=== PATIENT | male | born 1970 | race Caucasian/White ===

== ENCOUNTER → 2018-09-03 | Outpatient (REF) | payer OTHER ==
[2018-09-03 18:09] LABS: BASO % 0.4 % (0.0-1.0); EOS # 0.2 10^3/uL (0.0-0.50); EOS % 1.7 % (0.0-3.0); HEMOGLOBIN 16.2 g/dl (13.5-17.5); LYMPH # 2.4 10^3/uL (1.5-4.5); LYMPH % 23.7 % (24.0-44.0); MEAN CORPUSCULAR HEMOGLOBIN 33.7 pg (27.0-33.0); MEAN CORPUSCULAR HGB CONC 33.8 g/dl (32.0-36.5); MEAN CORPUSCULAR VOLUME 99.8 fl (80.0-96.0); MONO # 0.7 10^3/uL (0.0-0.8); MONO % 6.4 % (0.0-5.0); NEUTROPHILS # 6.8 10^3/uL (1.8-7.7); NEUTROPHILS % 67.5 % (36.0-66.0); PLATELET COUNT, AUTOMATED 272 10^3/uL (150-450); RED BLOOD COUNT 4.81 10^6/uL (4.30-6.10); WHITE BLOOD COUNT 10.1 10^3/uL (4.0-10.0)
[2018-09-03 18:27] LABS: ALBUMIN 3.6 GM/DL (3.2-5.2); ALT/SGPT 17 U/L (12-78); BILIRUBIN,TOTAL 0.6 MG/DL (0.2-1.0); BLOOD UREA NITROGEN 11 MG/DL (7-18); CALCIUM LEVEL 8.8 MG/DL (8.5-10.1); CARBON DIOXIDE LEVEL 27 MEQ/L (21-32); CHLORIDE LEVEL 111 MEQ/L (98-107); CPK CREATINE PHOSPHOKINASE 124 U/L (39-308); CREATININE FOR GFR 1.03 MG/DL (0.70-1.30); GLOMERULAR FILTRATION RATE > 60.0 (>60); GLUCOSE, FASTING 86 MG/DL (70-100); POTASSIUM SERUM 4.3 MEQ/L (3.5-5.1); SODIUM LEVEL 143 MEQ/L (136-145); TOTAL PROTEIN 7.4 GM/DL (6.4-8.2)
[2018-09-03 18:33] LABS: HEMOGLOBIN A1c 5.5 %
== END ==
LOC: M SFHCPLAZ 15:43
PROVIDERS: ATTEND Physician Assistant Medical
DX: E66.3 Overweight (principal); E78.49 Other hyperlipidemia; D72.829 Elevated white blood cell count, unspecified

== ENCOUNTER → 2018-10-21 | Outpatient (REF) | payer OTHER ==
[2018-10-21 13:50] LABS: CHOLESTEROL RISK RATIO 5.315 (<5)
== END ==
LOC: M SFHCPLAZ 11:34
PROVIDERS: ATTEND Physician Assistant Medical
DX: E78.49 Other hyperlipidemia (principal)

== ENCOUNTER → 2018-11-04 | Outpatient (CLI) | payer OTHER ==
--- NOTE | 2018-11-05 06:07 | REP ---
Clinical: Thyroid nodule. Technique: Real time chery scale and color evaluation using linear high frequency and curved array transducers. Comparison: None. Findings: Thyroid gland parenchyma is relatively homogeneous and normal. The isthmus measures 3 mm in width. There is slight asymmetry to the size of the glands. The right lobe measures 6.0 x 3.3 x 1.8 cm and includes 5 x 3 x 5 mm hypoechoic mid pole nodule with mural calcification and 2 x 1 x 2 mm focal parenchymal calcifications. The left thyroid lobe measures 4.5 x 2.1 x 1.5 cm includes 5 x 4 x 4 mm hypoechoic solid mid pole nodule and 4 x 3 x 4 mm lower pole isoechoic nodule. Vascularity to the bilateral thyroid lobes appears normal. Impression: Slight asymmetry to the size of the bilateral thyroid lobes (right greater than left) along with complex partially calcified nodule in the right lobe and smaller nonspecific bilateral nodules. Electronically Signed by Rustam Gandara MD 11/05/2018 05:58 A
== END ==
LOC: M RAD 08:52
PROVIDERS: ATTEND Physician Assistant Medical
DX: E04.2 Nontoxic multinodular goiter (principal)

== ENCOUNTER → 2018-11-23 | Outpatient (CLI) | payer OTHER ==
--- NOTE | 2018-11-23 10:01 | PFTRPT ---
Height: 70.00 Inches Weight: 180.00 Lbs BSA: 2.00 Diagnosis: J44.9 DATE OF PROCEDURE: 11/23/2018 ORDERED BY: LAMBERTO Hendrix Spirometry: Excellent technical quality. Forced vital capacity is normal. FEV1 in proportion. Obstructive index is, therefore, normal. Flow Volume Loop: Expiratory limb of the flow volume loop is normal. Lung Volumes: Total lung capacity normal. Residual volume is in proportion. Diffusing Capacity: Diffusing capacity is mildly reduced. Hemoglobin: No hemoglobin available for correction. It does correct for alveolar volume. Airway Mechanics: Airway resistance and conductance are normal. IMPRESSION: Mild reduction in the absolute diffusing capacity requires clinical correlation. MTDD
== END ==
LOC: M CARPUL 09:29
PROVIDERS: ATTEND Physician Assistant Medical
DX: J44.9 Chronic obstructive pulmonary disease, unspecified (principal)

== ENCOUNTER → 2019-01-11 | Outpatient (REF) | payer OTHER ==
[2019-01-11 12:17] LABS: ALT/SGPT 20 U/L (12-78); BILIRUBIN,TOTAL 0.8 MG/DL (0.2-1.0); BLOOD UREA NITROGEN 14 MG/DL (7-18); CALCIUM LEVEL 9.3 MG/DL (8.5-10.1); CARBON DIOXIDE LEVEL 26 MEQ/L (21-32); CHLORIDE LEVEL 110 MEQ/L (98-107); CHOLESTEROL LEVEL 135 MG/DL (<200); CHOLESTEROL RISK RATIO 3.375 (<5); CPK CREATINE PHOSPHOKINASE 116 U/L (39-308); CREATININE FOR GFR 1.15 MG/DL (0.70-1.30); GLOMERULAR FILTRATION RATE > 60.0 (>60); GLUCOSE, FASTING 107 MG/DL (70-100); HDL CHOLESTEROL 40 MG/DL (>40); LDL CHOLESTEROL 63 MG/DL (<100); NON-HDL-C 95 MG/DL; POTASSIUM SERUM 4.2 MEQ/L (3.5-5.1); SODIUM LEVEL 145 MEQ/L (136-145); TOTAL PROTEIN 7.4 GM/DL (6.4-8.2); TRIGLYCERIDES LEVEL 160 MG/DL (<150)
== END ==
LOC: M SFHCPLAZ 09:11
PROVIDERS: ATTEND Physician Assistant Medical
DX: E78.49 Other hyperlipidemia (principal)

== ENCOUNTER → 2019-01-11 | Outpatient (REF) | payer OTHER ==
[~2019-01-11] MED LIST: ALBU8.5H; ATOR40TA75; INCR1INH; TIZA4TAB4
[2019-01-16 00:07] LABS: METANEPHRINE TOTAL URINE 113 ug/L (Undefined); METANEPHRINE URINE 96 ug/24 hr (45-290); NORMETANEPHRINE TOTAL URINE 121 ug/L (Undefined); NORMETANEPHRINE URINE 103 ug/24 hr (82-500)
== END ==
LOC: M SFHCPLAZ 11:30
PROVIDERS: ATTEND Physician Assistant Medical
DX: D35.00 Benign neoplasm of unspecified adrenal gland (principal)

== ENCOUNTER 2019-02-18 11:09 | Emergency (ER) | payer OTHER ==
[~2019-02-18] VITALS: Ht 177.8 cm; Wt 84.5 kg
[2019-02-18] MEDS ORDERED: ALBU8.5H (11:25)
[2019-02-18] MEDS ORDERED: INCR1INH (11:25)
[2019-02-18] MEDS ORDERED: TIZA4TAB4 (11:25)
[2019-02-18] MEDS ORDERED: ATOR40TA75 (11:25)
[2019-02-18 11:49] LABS: HEMATOCRIT 47.2 % (42.0-52.0); HEMOGLOBIN 15.8 g/dl (13.5-17.5); MEAN CORPUSCULAR HEMOGLOBIN 32.6 pg (27.0-33.0); MEAN CORPUSCULAR HGB CONC 33.5 g/dl (32.0-36.5); MEAN CORPUSCULAR VOLUME 97.5 fl (80.0-96.0); PLATELET COUNT, AUTOMATED 277 10^3/uL (150-450); RED BLOOD COUNT 4.84 10^6/uL (4.30-6.10)
[2019-02-18 12:12] LABS: AMPHETAMINES LEVEL URINE NEGATIVE (NEGATIVE); BARBITURATES URINE NEGATIVE (NEGATIVE); BENZODIAZEPINES URINE NEGATIVE (NEGATIVE); CANNABINOIDS URINE POSITIVE (NEGATIVE); COCAINE METABOLITE URINE NEGATIVE (NEGATIVE); METHADONE URINE NEGATIVE (NEGATIVE); OPIATES URINE NEGATIVE (NEGATIVE); PHENCYCLIDINE URINE NEGATIVE (NEGATIVE)
[2019-02-18 12:21] LABS: ALT/SGPT 20 U/L (12-78); BILIRUBIN,DIRECT 0.2 MG/DL (0.0-0.2); BILIRUBIN,TOTAL 0.9 MG/DL (0.2-1.0); BLOOD UREA NITROGEN 14 MG/DL (7-18); CALCIUM LEVEL 9.6 MG/DL (8.5-10.1); CARBON DIOXIDE LEVEL 30 MEQ/L (21-32); CHLORIDE LEVEL 109 MEQ/L (98-107); CREATININE FOR GFR 1.13 MG/DL (0.70-1.30); GLOMERULAR FILTRATION RATE > 60.0 (>60); GLUCOSE, FASTING 97 MG/DL (70-100); POTASSIUM SERUM 3.6 MEQ/L (3.5-5.1); SODIUM LEVEL 144 MEQ/L (136-145)
[2019-02-18 12:22] LABS: ALBUMIN 4.2 GM/DL (3.2-5.2); SALICYLATE LEVEL < 1.7 MG/DL (5.0-30.0); TOTAL PROTEIN 7.8 GM/DL (6.4-8.2)
[2019-02-18 12:23] LABS: ACETAMINOPHEN LEVEL < 2.0 UG/ML (10.0-30.0); ETHYL ALCOHOL (ETHANOL) < 0.003 % (0.000-0.010)
[2019-02-18 14:01] VITALS: BP 127/77
== END 2019-02-18 14:02 | disposition home or self-care (01) ==
LOC: M ED 11:09
DX: R44.1 Visual hallucinations (principal); F41.9 Anxiety disorder, unspecified; Z87.891 Personal history of nicotine dependence; J44.9 Chronic obstructive pulmonary disease, unspecified; Z88.8 Allergy status to other drugs, medicaments and biological substances; Z79.51 Long term (current) use of inhaled steroids; Z79.899 Other long term (current) drug therapy
CPT/HCPCS: 80048; 80076; 80307; 84443; 85027; 99284; G0480

== ENCOUNTER 2019-05-10 14:45 | Emergency (ER) | payer MEDICAID, OTHER ==
[~2019-05-10] VITALS: Ht 177.8 cm; Wt 81.8 kg
[~2019-05-10 14:45] MED LIST changes: -TIZA4TAB4; +TIZA4TAB4 PO
[2019-05-10] MEDS ORDERED: ACET-683 PO (15:29)
[2019-05-10] MEDS ORDERED: LISI-542 PO (15:29)
[2019-05-10] MEDS ORDERED: PYRI25TA2 PO (15:29)
[2019-05-10] MEDS ORDERED: NORT25CA2 PO (15:29)
[2019-05-10 15:52] LABS: HEMATOCRIT 48.2 % (42.0-52.0); MEAN CORPUSCULAR HEMOGLOBIN 32.6 pg (27.0-33.0); MEAN CORPUSCULAR HGB CONC 33.2 g/dl (32.0-36.5); MEAN CORPUSCULAR VOLUME 98.2 fl (80.0-96.0); PLATELET COUNT, AUTOMATED 225 10^3/uL (150-450); RED BLOOD COUNT 4.91 10^6/uL (4.30-6.10); WHITE BLOOD COUNT 8.2 10^3/uL (4.0-10.0)
[2019-05-10 16:22] LABS: ACETAMINOPHEN LEVEL < 2.0 UG/ML (10.0-30.0); ALBUMIN 4.3 GM/DL (3.2-5.2); ALT/SGPT 24 U/L (12-78); BILIRUBIN,DIRECT 0.2 MG/DL (0.0-0.2); BILIRUBIN,TOTAL 0.8 MG/DL (0.2-1.0); BLOOD UREA NITROGEN 15 MG/DL (7-18); CALCIUM LEVEL 9.5 MG/DL (8.5-10.1); CARBON DIOXIDE LEVEL 27 MEQ/L (21-32); CHLORIDE LEVEL 109 MEQ/L (98-107); CREATININE FOR GFR 1.16 MG/DL (0.70-1.30); ETHYL ALCOHOL (ETHANOL) < 0.003 % (0.000-0.010); GLOMERULAR FILTRATION RATE > 60.0 (>60); GLUCOSE, FASTING 104 MG/DL (70-100); POTASSIUM SERUM 4.2 MEQ/L (3.5-5.1); SALICYLATE LEVEL < 1.7 MG/DL (5.0-30.0); SODIUM LEVEL 141 MEQ/L (136-145); TOTAL PROTEIN 7.6 GM/DL (6.4-8.2)
[2019-05-10 16:28] LABS: AMPHETAMINES LEVEL URINE NEGATIVE (NEGATIVE); BARBITURATES URINE NEGATIVE (NEGATIVE); BENZODIAZEPINES URINE NEGATIVE (NEGATIVE); CANNABINOIDS URINE POSITIVE (NEGATIVE); COCAINE METABOLITE URINE NEGATIVE (NEGATIVE); METHADONE URINE NEGATIVE (NEGATIVE); OPIATES URINE NEGATIVE (NEGATIVE); PHENCYCLIDINE URINE NEGATIVE (NEGATIVE)
[2019-05-10 19:40] VITALS: BP 161/92
== END 2019-05-10 20:09 | disposition home or self-care (01) ==
LOC: M ED 14:45
DX: F43.0 Acute stress reaction (principal); R45.1 Restlessness and agitation; F41.9 Anxiety disorder, unspecified; I10 Essential (primary) hypertension; J44.9 Chronic obstructive pulmonary disease, unspecified; F17.210 Nicotine dependence, cigarettes, uncomplicated; Z88.2 Allergy status to sulfonamides; Z79.51 Long term (current) use of inhaled steroids; Z79.899 Other long term (current) drug therapy
CPT/HCPCS: 36415; 80048; 80076; 80307; 84443; 85027; 99284; G0480

== ENCOUNTER → 2019-05-13 | Outpatient (CLI) | payer OTHER ==
[~2019-05-13] MED LIST changes: +ACET-683 PO; +IBUP-1022 PO; +LISI-542 PO; +NORT25CA2 PO; +PYRI25TA2 PO
--- NOTE | 2019-05-13 11:35 | REPVR ---
PROCEDURE INFORMATION: Exam: MR Lumbar Spine Without Contrast. Exam date and time: 05/13/2019 8:07 AM Age: 48 years old Clinical indication: Low back pain; Patient HX: Neuropathy TECHNIQUE: Imaging protocol: Multiplanar magnetic resonance images of the lumbar spine without intravenous contrast. COMPARISON: No relevant prior studies available. FINDINGS: Vertebrae: No acute compression fracture is seen. Bone marrow signal is within normal limits. Spinal cord: The conus medullaris terminates at the L1 level. There is no evidence of arachnoiditis or cauda equina compression. L1-L2: There is mild facet arthropathy. There is no significant spinal canal or neural foraminal stenosis. L2-L3: There is mild facet arthropathy. There is no significant spinal canal or neural foraminal stenosis. L3-L4: There is mild facet arthropathy. This is causing mild bilateral neural foraminal narrowing. There is no spinal canal stenosis. L4-L5: There is mild facet arthropathy and thickening of the ligamentum flavum. This is causing minimal spinal canal stenosis. There is no significant neural foraminal narrowing. L5-S1: No significant disc disease. No significant spinal stenosis or neural foraminal narrowing. Soft tissues: Unremarkable. IMPRESSION: 1. No acute abnormality 2. Mild facet arthropathy within the lumbar spine. There is no significant spinal canal or neural foraminal stenosis. Electronically signed by: Romulo Velasquez On 05/13/2019 11:35:36 AM
== END ==
LOC: M RAD 07:22
PROVIDERS: ATTEND Physician Assistant Medical
DX: G62.9 Polyneuropathy, unspecified (principal); M46.96 Unspecified inflammatory spondylopathy, lumbar region

== ENCOUNTER 2019-05-15 20:28 | Emergency (ER) | payer OTHER ==
[~2019-05-15] VITALS: Ht 177.8 cm; Wt 81.6 kg
[~2019-05-15 20:28] MED LIST changes: -IBUP-1022 PO
[2019-05-15 21:25] LABS: BASO % 0.3 % (0.0-1.0); EOS % 0.2 % (0.0-3.0); HEMATOCRIT 45.6 % (42.0-52.0); HEMOGLOBIN 15.3 g/dl (13.5-17.5); LYMPH # 0.6 10^3/uL (1.5-5.0); LYMPH % 10.8 % (24.0-44.0); MEAN CORPUSCULAR HEMOGLOBIN 32.1 pg (27.0-33.0); MEAN CORPUSCULAR HGB CONC 33.6 g/dl (32.0-36.5); MEAN CORPUSCULAR VOLUME 95.8 fl (80.0-96.0); MONO # 0.6 10^3/uL (0.0-0.8); MONO % 10.5 % (0.0-5.0); NEUTROPHILS # 4.6 10^3/uL (1.5-8.5); PLATELET COUNT, AUTOMATED 190 10^3/uL (150-450); RED BLOOD COUNT 4.76 10^6/uL (4.30-6.10); WHITE BLOOD COUNT 5.9 10^3/uL (4.0-10.0)
[2019-05-15 21:51] LABS: BLOOD UREA NITROGEN 14 MG/DL (7-18); CALCIUM LEVEL 8.8 MG/DL (8.5-10.1); CARBON DIOXIDE LEVEL 21 MEQ/L (21-32); CHLORIDE LEVEL 110 MEQ/L (98-107); CK-MB VALUE MASS < 1.0 NG/ML (<3.6); CPK CREATINE PHOSPHOKINASE 175 U/L (39-308); CREATININE FOR GFR 1.14 MG/DL (0.70-1.30); GLOMERULAR FILTRATION RATE > 60.0 (>60); GLUCOSE, FASTING 102 MG/DL (70-100); MB/CK RELATIVE INDEX 0.57 (< OR =4); NT-PRO BNP 104 PG/ML (<125); POTASSIUM SERUM 3.8 MEQ/L (3.5-5.1); SODIUM LEVEL 141 MEQ/L (136-145); TROPONIN I < 0.02 NG/ML (< 0.10)
--- NOTE | 2019-05-15 21:51 | REPVR ---
PROCEDURE INFORMATION: Exam: CT Head Without Contrast Exam date and time: 05/15/19 (9:27pm) Age: 48 years old Clinical indication: Numbness. Paresthesia to all extremities, worse on left side. TECHNIQUE: Imaging protocol: Computed tomography of the head without contrast. Radiation optimization: All CT scans at this facility use at least one of these dose optimization techniques: automated exposure control; mA and/or kV adjustment per patient size (includes targeted exams where dose is matched to clinical indication); or iterative reconstruction. COMPARISON: US THYROID of 11/04/18 FINDINGS: Brain: Unremarkable. No acute hemorrhage. Unremarkable white matter. No mass effect. Ventricles: Normal. No ventriculomegaly. Bones/joints: Unremarkable. No acute fracture. Sinuses: Visualized sinuses are unremarkable. No air-fluid levels. Mastoid air cells: Visualized mastoid air cells are well aerated. Soft tissues: Unremarkable. IMPRESSION: No acute intracranial pathology is appreciated. Electronically signed by: Kaitlin Delgado On 05/15/2019 21:53:04 PM
[2019-05-15 21:57] LABS: INFLUENZA A AMPLIFICATION POSITIVE (NEGATIVE); INFLUENZA B AMPLIFICATION NEGATIVE (NEGATIVE)
--- NOTE | 2019-05-15 22:05 | ECGEPIP ---
[facility] - ED Test Date: 2019-05-15 Pat Name: CHRISTOPHER MARTÍNEZ Department: Room: - Gender: Male [employer] Operator: sb : 1970 Requested By: MARGARET NEWBERRY Order Number: [id number] Reading MD: Kenroy Dumont Measurements Intervals [place] Rate: 77 P: 65 [place]: 142 QRS: -7 QRSD: 107 T: 35 QT: 361 QTc: 411 Interpretive Statements SINUS RHYTHM INCOMPLETE RIGHT BUNDLE BRANCH BLOCK NO PRIORS FOR COMPARISON Electronically Signed on 05-15-2019 22:05:23 EST by Kenroy Dumont
[2019-05-15] MEDS ORDERED: ACETAMINOPHEN TAB 650MG DOSE (2X325MG) PO ONE (22:30)
[2019-05-15] MEDS ORDERED: IBUPROFEN 600 MG TAB PO ONE (22:30)
[2019-05-15] MEDS ORDERED: NS 1,000 ML IV ONE (22:45)
[2019-05-16 00:21] VITALS: BP 129/66
[2019-05-16] MEDS ORDERED: ACET-683 PO (00:22)
[2019-05-16] MEDS ORDERED: IBUP-1022 PO (00:22)
--- NOTE | 2019-05-16 08:03 | REP ---
The PA and lateral chest: There are no comparisons. I suspect there is a surgical staple line in the right apex. The lung aguilar otherwise clear. Cardiac size is normal. The hailey, mediastinum, skeletal structures are. Impression: No acute cardiopulmonary findings. I suspect there is a surgical staple line in the right apex. The Electronically Signed by Danielito Martinez MD 05/16/2019 07:55 A
== END 2019-05-16 00:31 | disposition home or self-care (01) ==
LOC: M ED 20:28
DX: J10.1 Influenza due to other identified influenza virus with other respiratory manifestations (principal); I10 Essential (primary) hypertension; J44.9 Chronic obstructive pulmonary disease, unspecified; E78.5 Hyperlipidemia, unspecified; F17.200 Nicotine dependence, unspecified, uncomplicated; Z90.2 Acquired absence of lung [part of]; F12.10 Cannabis abuse, uncomplicated; F10.10 Alcohol abuse, uncomplicated; Z88.8 Allergy status to other drugs, medicaments and biological substances; Z79.899 Other long term (current) drug therapy

== ENCOUNTER → 2019-05-31 | Outpatient (CLI) | payer OTHER, MEDICAID ==
[~2019-05-31] MED LIST changes: +IBUP-1022 PO
[2019-05-31 17:28] LABS: CHOLESTEROL RISK RATIO 2.864 (<5)
== END ==
LOC: M PLALAB 12:20
PROVIDERS: ATTEND Student in an Organized Health Care Education/Training Program
DX: F06.0 Psychotic disorder with hallucinations due to known physiological condition (principal); F41.1 Generalized anxiety disorder

== ENCOUNTER → 2019-10-04 | Outpatient (REF) | payer OTHER ==
[2019-10-04 13:45] LABS: BASO # 0.1 10^3/uL (0.0-0.2); BASO % 0.5 % (0.0-1.0); EOS # 2.7 10^3/uL (0.0-0.5); HEMATOCRIT 45.2 % (42.0-52.0); HEMOGLOBIN 14.9 g/dl (13.5-17.5); LYMPH # 2.4 10^3/uL (1.5-5.0); LYMPH % 18.3 % (24.0-44.0); MEAN CORPUSCULAR HEMOGLOBIN 33.8 pg (27.0-33.0); MEAN CORPUSCULAR VOLUME 102.5 fl (80.0-96.0); MONO # 0.7 10^3/uL (0.0-0.8); MONO % 5.2 % (0.0-5.0); NEUTROPHILS # 7.1 10^3/uL (1.5-8.5); NEUTROPHILS % 54.8 % (36.0-66.0); PLATELET COUNT, AUTOMATED 268 10^3/uL (150-450); RED BLOOD COUNT 4.41 10^6/uL (4.30-6.10)
[2019-10-04 14:22] LABS: ALBUMIN 3.5 GM/DL (3.2-5.2); ALT/SGPT 28 U/L (12-78); BILIRUBIN,TOTAL 0.4 MG/DL (0.2-1.0); BLOOD UREA NITROGEN 18 MG/DL (7-18); CARBON DIOXIDE LEVEL 29 MEQ/L (21-32); CHLORIDE LEVEL 108 MEQ/L (98-107); CHOLESTEROL LEVEL 159 MG/DL (<200); CHOLESTEROL RISK RATIO 4.297 (<5); CPK CREATINE PHOSPHOKINASE 108 U/L (39-308); CREATININE FOR GFR 1.07 MG/DL (0.70-1.30); FREE T4 1.12 NG/DL (0.76-1.46); GLOMERULAR FILTRATION RATE > 60.0 (>60); GLUCOSE, FASTING 83 MG/DL (70-100); HDL CHOLESTEROL 37 MG/DL (>40); LDL CHOLESTEROL 102 MG/DL (<100); NON-HDL-C 122 MG/DL; POTASSIUM SERUM 4.3 MEQ/L (3.5-5.1); SODIUM LEVEL 142 MEQ/L (136-145); THYROID STIMULATING HORMONE 0.767 uIU/ML (0.358-3.740); TRIGLYCERIDES LEVEL 99 MG/DL (<150)
[2019-10-04 14:26] LABS: EOS % 20.9 % (0.0-3.0); VITAMIN B12 LEVEL 481 PG/ML (247-911)
== END ==
LOC: M PLALAB 11:33
PROVIDERS: ATTEND Physician Assistant Medical
DX: E78.49 Other hyperlipidemia (principal); E04.1 Nontoxic single thyroid nodule; F17.200 Nicotine dependence, unspecified, uncomplicated; I10 Essential (primary) hypertension

== ENCOUNTER → 2019-12-27 | Outpatient (CLI) | payer OTHER, MEDICAID ==
[2019-12-27 12:50] LABS: CHOLESTEROL RISK RATIO 4.525 (<5)
[2019-12-27 13:00] LABS: HEMOGLOBIN A1c 5.3 %
== END ==
LOC: M PLALAB 09:48
PROVIDERS: ATTEND Student in an Organized Health Care Education/Training Program
DX: F20.9 Schizophrenia, unspecified (principal)

== ENCOUNTER → 2020-04-03 | Outpatient (CLI) | payer OTHER, MEDICAID ==
[2020-04-03 13:55] LABS: HEMOGLOBIN A1c 5.3 %
[2020-04-03 14:13] LABS: CHOLESTEROL RISK RATIO 4.289 (<5)
== END ==
LOC: M PLALAB 10:51
PROVIDERS: ATTEND Student in an Organized Health Care Education/Training Program
DX: J44.9 Chronic obstructive pulmonary disease, unspecified (principal); F32.9 Major depressive disorder, single episode, unspecified; Z79.899 Other long term (current) drug therapy

== ENCOUNTER → 2020-05-11 | Outpatient (REF) | payer OTHER ==
[2020-05-11 18:08] LABS: BASO # 0.1 10^3/uL (0.0-0.2); BASO % 0.4 % (0.0-1.0); EOS # 0.2 10^3/uL (0.0-0.5); EOS % 1.4 % (0.0-3.0); HEMATOCRIT 48.1 % (42.0-52.0); HEMOGLOBIN 15.8 g/dl (13.5-17.5); LYMPH # 2.2 10^3/uL (1.5-5.0); LYMPH % 16.8 % (24.0-44.0); MEAN CORPUSCULAR HEMOGLOBIN 32.8 pg (27.0-33.0); MEAN CORPUSCULAR HGB CONC 32.8 g/dl (32.0-36.5); MONO # 0.7 10^3/uL (0.0-0.8); NEUTROPHILS % 76.1 % (36.0-66.0); PLATELET COUNT, AUTOMATED 299 10^3/uL (150-450); RED BLOOD COUNT 4.81 10^6/uL (4.30-6.10); WHITE BLOOD COUNT 13.1 10^3/uL (4.0-10.0)
[2020-05-11 18:39] LABS: ALT/SGPT 23 U/L (12-78); BILIRUBIN,TOTAL 0.6 MG/DL (0.2-1.0); BLOOD UREA NITROGEN 16 MG/DL (7-18); CALCIUM LEVEL 9.5 MG/DL (8.5-10.1); CARBON DIOXIDE LEVEL 27 MEQ/L (21-32); CHLORIDE LEVEL 106 MEQ/L (98-107); CHOLESTEROL LEVEL 174 MG/DL (<200); CHOLESTEROL RISK RATIO 4.461 (<5); CREATININE FOR GFR 1.11 MG/DL (0.70-1.30); GLOMERULAR FILTRATION RATE > 60.0 (>60); GLUCOSE, FASTING 91 MG/DL (70-100); HDL CHOLESTEROL 39 MG/DL (>40); LDL CHOLESTEROL 108 MG/DL (<100); NON-HDL-C 135 MG/DL; POTASSIUM SERUM 4.3 MEQ/L (3.5-5.1); SODIUM LEVEL 141 MEQ/L (136-145); TOTAL PROTEIN 7.3 GM/DL (6.4-8.2); TRIGLYCERIDES LEVEL 135 MG/DL (<150)
== END ==
LOC: M PLALAB 14:41
PROVIDERS: ATTEND Physician Assistant Medical
DX: I10 Essential (primary) hypertension (principal); E78.49 Other hyperlipidemia

== ENCOUNTER → 2020-11-20 | Outpatient (CLI) | payer OTHER ==
[~2020-11-20] MED LIST changes: -LISI-542 PO; +LISI5TAB11 PO; +TIZA10TA PO; -TIZA4TAB4 PO
[2020-11-20 14:16] LABS: BASO # 0.1 10^3/uL (0.0-0.2); BASO % 0.5 % (0.0-1.0); EOS # 0.2 10^3/uL (0.0-0.5); EOS % 1.5 % (0.0-3.0); HEMATOCRIT 47.8 % (42.0-52.0); HEMOGLOBIN 15.7 g/dl (13.5-17.5); LYMPH # 2.4 10^3/uL (1.5-5.0); LYMPH % 19.2 % (24.0-44.0); MEAN CORPUSCULAR HEMOGLOBIN 33.3 pg (27.0-33.0); MEAN CORPUSCULAR HGB CONC 32.8 g/dl (32.0-36.5); MEAN CORPUSCULAR VOLUME 101.3 fl (80.0-96.0); MONO # 0.9 10^3/uL (0.0-0.8); MONO % 6.9 % (2.0-8.0); NEUTROPHILS % 71.4 % (36.0-66.0); PLATELET COUNT, AUTOMATED 270 10^3/uL (150-450); RED BLOOD COUNT 4.72 10^6/uL (4.30-6.10); WHITE BLOOD COUNT 12.6 10^3/uL (4.0-10.0)
[2020-11-20 15:08] LABS: ALBUMIN 3.6 GM/DL (3.2-5.2); ALT/SGPT 30 U/L (12-78); BILIRUBIN,TOTAL 0.3 MG/DL (0.2-1.0); BLOOD UREA NITROGEN 16 MG/DL (7-18); CALCIUM LEVEL 9.4 MG/DL (8.5-10.1); CARBON DIOXIDE LEVEL 33 MEQ/L (21-32); CHLORIDE LEVEL 107 MEQ/L (98-107); CREATININE FOR GFR 1.18 MG/DL (0.70-1.30); FREE T4 0.98 NG/DL (0.76-1.46); GLOMERULAR FILTRATION RATE > 60.0 (>60); GLUCOSE, FASTING 76 MG/DL (70-100); POTASSIUM SERUM 4.8 MEQ/L (3.5-5.1); SODIUM LEVEL 143 MEQ/L (136-145); TOTAL PROTEIN 7.4 GM/DL (6.4-8.2)
== END ==
LOC: M PLALAB 12:02
PROVIDERS: ATTEND Physician Assistant Medical
DX: E78.49 Other hyperlipidemia (principal); I10 Essential (primary) hypertension; E04.1 Nontoxic single thyroid nodule

== ENCOUNTER → 2020-12-04 | Outpatient (CLI) | payer OTHER ==
[~2020-12-04] MED LIST changes: +LISI-898 PO; -LISI5TAB11 PO; -TIZA10TA PO; +TIZA4TAB4 PO
--- NOTE | 2020-12-04 11:25 | REP ---
INDICATION: THYROID NODULE COMPARISON: 11/04/2018 TECHNIQUE: Barboza scale and color evaluation of the thyroid gland using the linear high frequency transducer. FINDINGS: Thyroid gland is mildly heterogeneous. Right thyroid lobe measures 6.2 x 2.6 x 1.4 cm and includes 10 x 6 x 8 mm complex posterior mid to lower pole nodule which was not previously identified along with 6 x 4 x 5 mm anterior midpole complex nodule calcification unchanged and 4 x 3 x 4 mm hypoechoic midpole nodule not definitively identified on prior exam. Isthmus measures 3.2 mm in width. Left thyroid lobe measures 4.2 x 2.3 x 1.2 cm and includes 6 x 4 x 6 mm midpole hypoechoic nodule similar to prior examination and 5 x 4 x 3 mm isoechoic nodule similar to prior examination. A subtle 3 x 2 x 2 mm nodule along the medial aspect is also suggested and possibly new. IMPRESSION: Nonspecific nodules on current examination which appear to represent both new and small stable findings. Correlation with thyroid function tests and follow-up ultrasound may be warranted. <Electronically signed by Rustam Gandara > 12/04/20 [id number]
== END ==
LOC: M RAD 10:07
PROVIDERS: ATTEND Physician Assistant Medical
DX: E04.1 Nontoxic single thyroid nodule (principal)

== ENCOUNTER → 2021-03-19 | Outpatient (CLI) | payer MEDICAID, MEDICARE, OTHER ==
[2021-03-19 13:39] LABS: APPEARANCE, URINE CLEAR (CLEAR); BACTERIA, URINE AUTO NEGATIVE (NEGATIVE); BILIRUBIN, URINE AUTO NEGATIVE (NEGATIVE); BLOOD, URINE BLOOD 1+ (NEGATIVE); COLOR, URINE YELLOW (YELLOW); GLUCOSE, URINE (UA) AUTO NEGATIVE (NEGATIVE); KETONE, URINE AUTO NEGATIVE (NEGATIVE); LEUKOCYTE ESTERASE, URINE AUTO NEGATIVE (NEGATIVE); MUCUS, URINE SMALL (NEGATIVE); NITRITE, URINE AUTO NEGATIVE (NEGATIVE); PROTEIN, URINE AUTO NEGATIVE (NEGATIVE); RBC, URINE AUTO 3 /HPF (0-3); SPECIFIC GRAVITY URINE AUTO 1.024 (1.002-1.035); SQUAMOUS EPITHELIAL CELL UR AU 0 /HPF (0-6); WBC, URINE AUTO 1 /HPF (0-3)
[2021-03-19 15:31] LABS: BASO % 0.5 % (0.0-1.0); EOS # 0.2 10^3/uL (0.0-0.5); EOS % 2.1 % (0.0-3.0); HEMOGLOBIN 15.5 g/dl (13.5-17.5); LYMPH # 2.5 10^3/uL (1.5-5.0); LYMPH % 29.3 % (24.0-44.0); MEAN CORPUSCULAR HEMOGLOBIN 32.8 pg (27.0-33.0); MEAN CORPUSCULAR HGB CONC 32.3 g/dl (32.0-36.5); MEAN CORPUSCULAR VOLUME 101.7 fl (80.0-96.0); MONO # 0.7 10^3/uL (0.0-0.8); MONO % 8.6 % (2.0-8.0); NEUTROPHILS % 58.9 % (36.0-66.0); PLATELET COUNT, AUTOMATED 294 10^3/uL (150-450); RED BLOOD COUNT 4.72 10^6/uL (4.30-6.10); WHITE BLOOD COUNT 8.5 10^3/uL (4.0-10.0)
[2021-03-19 16:14] LABS: ALBUMIN 3.4 GM/DL (3.2-5.2); ALT/SGPT 39 U/L (12-78); BILIRUBIN,TOTAL 0.4 MG/DL (0.2-1.0); BLOOD UREA NITROGEN 20 MG/DL (7-18); CALCIUM LEVEL 9.5 MG/DL (8.5-10.1); CARBON DIOXIDE LEVEL 31 MEQ/L (21-32); CHLORIDE LEVEL 112 MEQ/L (98-107); CHOLESTEROL LEVEL 206 MG/DL (<200); CHOLESTEROL RISK RATIO 5.024 (<5); CREATININE FOR GFR 1.09 MG/DL (0.70-1.30); FREE T4 1.04 NG/DL (0.76-1.46); GLOMERULAR FILTRATION RATE > 60.0 (>60); GLUCOSE, FASTING 96 MG/DL (70-100); HDL CHOLESTEROL 41 MG/DL (>40); LDL CHOLESTEROL 135 MG/DL (<100); NON-HDL-C 165 MG/DL; POTASSIUM SERUM 4.7 MEQ/L (3.5-5.1); SODIUM LEVEL 146 MEQ/L (136-145); TOTAL PROTEIN 7.4 GM/DL (6.4-8.2); TRIGLYCERIDES LEVEL 150 MG/DL (<150)
[2021-03-20 13:03] LABS: VITAMIN B12 LEVEL 388 PG/ML (247-911)
== END ==
LOC: M PLALAB 12:36
PROVIDERS: ATTEND Physician Assistant Medical
DX: R35.0 Frequency of micturition (principal); E78.49 Other hyperlipidemia; I10 Essential (primary) hypertension

== ENCOUNTER → 2021-03-23 | Outpatient (CLI) | payer MEDICARE, OTHER ==
--- NOTE | 2021-03-23 11:46 | REPVR ---
PROCEDURE INFORMATION: Exam: MR Head Without and With Contrast Exam date and time: 03/23/2021 10:45 AM Age: 50 years old Clinical indication: Visual disturbance; Additional info: Papilledema associated with retinal disorder TECHNIQUE: Imaging protocol: MR of the head without and with intravenous contrast. Contrast material: PROHANCE; Contrast volume: 18 ml; Contrast route: INTRAVENOUS (IV); COMPARISON: CT Head without contrast 05/15/2019 9:26 PM FINDINGS: Brain: There is no acute intracranial hemorrhage, cerebral edema, or midline shift. No restricted diffusion is present to suggest acute infarction. No enhancing lesions were identified after the administration of contrast. Cerebral ventricles: No hydrocephalus. Bones/joints: A small chronic left medial orbital wall fracture is noted. Paranasal sinuses: Minimal mucosal thickening is present in the ethmoid and left frontal sinuses. Mastoid air cells: Normal as visualized. No mastoid effusion. Orbital cavity: Unremarkable. Soft tissues: Unremarkable. IMPRESSION: No acute intracranial abnormality. Electronically signed by: Romulo Velasquez On 03/23/2021 11:45:56 AM
--- NOTE | 2021-03-23 11:48 | REPVR ---
PROCEDURE INFORMATION: Exam: MR Orbit Without and With Contrast Exam date and time: 03/23/2021 10:45 AM Age: 50 years old Clinical indication: Visual changes or disturbances; Other: Edema; Additional info: Papilledema associated with retinal disorder TECHNIQUE: Imaging protocol: MR Orbit was performed without and with contrast. Contrast material: PROHANCE; Contrast volume: 18 ml; Contrast route: INTRAVENOUS (IV); COMPARISON: Thyroid, ST head+neck US 12/04/2020 10:23 AM FINDINGS: Orbital cavity: The orbits are unremarkable. The globes are intact. There is no orbital mass or proptosis. The optic nerves appear within normal limits. Paranasal sinuses: There is minimal mucosal thickening in the ethmoid and left frontal sinuses. Bones/joints: A small chronic left medial orbital wall fracture is noted. Soft tissues: Unremarkable. IMPRESSION: No acute orbital abnormality. Electronically signed by: Romulo Velasquez On 03/23/2021 11:47:54 AM
== END ==
LOC: M PLARAD 09:16
PROVIDERS: ATTEND Ophthalmology
DX: H47.13 Papilledema associated with retinal disorder (principal); J32.2 Chronic ethmoidal sinusitis; J32.1 Chronic frontal sinusitis; S02.832D Fracture of medial orbital wall, left side, subsequent encounter for fracture with routine healing; X58.XXXD Exposure to other specified factors, subsequent encounter; Y92.9 Unspecified place or not applicable; Y99.9 Unspecified external cause status; Y93.9 Activity, unspecified

== ENCOUNTER → 2021-06-28 | Outpatient (CLI) | payer OTHER, MEDICAID ==
[~2021-06-28] MED LIST changes: -LISI-898 PO; +LISI5TAB11 PO; +TIZA10TA PO; -TIZA4TAB4 PO
[2021-06-28 13:00] LABS: BASO % 0.6 % (0.0-1.0); EOS # 0.3 10^3/uL (0.0-0.5); EOS % 4.8 % (0.0-3.0); HEMATOCRIT 46.2 % (42.0-52.0); HEMOGLOBIN 15.3 g/dl (13.5-17.5); LYMPH # 2.6 10^3/uL (1.5-5.0); LYMPH % 36.9 % (24.0-44.0); MEAN CORPUSCULAR HGB CONC 33.1 g/dl (32.0-36.5); MEAN CORPUSCULAR VOLUME 99.6 fl (80.0-96.0); MONO # 0.6 10^3/uL (0.0-0.8); MONO % 8.5 % (2.0-8.0); NEUTROPHILS # 3.5 10^3/uL (1.5-8.5); NEUTROPHILS % 48.9 % (36.0-66.0); PLATELET COUNT, AUTOMATED 287 10^3/uL (150-450); RED BLOOD COUNT 4.64 10^6/uL (4.30-6.10); WHITE BLOOD COUNT 7.1 10^3/uL (4.0-10.0)
[2021-06-28 14:32] LABS: ALBUMIN 3.4 GM/DL (3.2-5.2); ALT/SGPT 32 U/L (12-78); BILIRUBIN,TOTAL 0.5 MG/DL (0.2-1.0); BLOOD UREA NITROGEN 17 MG/DL (7-18); CARBON DIOXIDE LEVEL 29 MEQ/L (21-32); CHLORIDE LEVEL 111 MEQ/L (98-107); CHOLESTEROL LEVEL 179 MG/DL (<200); CHOLESTEROL RISK RATIO 4.837 (<5); CREATININE FOR GFR 1.05 MG/DL (0.70-1.30); FREE T4 1.08 NG/DL (0.76-1.46); GLOMERULAR FILTRATION RATE > 60.0 (>60); GLUCOSE, FASTING 91 MG/DL (70-100); HDL CHOLESTEROL 37 MG/DL (>40); LDL CHOLESTEROL 100 MG/DL (<100); NON-HDL-C 142 MG/DL; POTASSIUM SERUM 4.4 MEQ/L (3.5-5.1); SODIUM LEVEL 144 MEQ/L (136-145); TRIGLYCERIDES LEVEL 208 MG/DL (<150)
== END ==
LOC: M PLALAB 11:05
PROVIDERS: ATTEND Physician Assistant Medical
DX: E78.49 Other hyperlipidemia (principal)

== ENCOUNTER → 2021-09-06 | Outpatient (CLI) | payer OTHER, MEDICAID | LOC: M EKG 12:53 | PROVIDERS: ATTEND Orthopaedic Surgery | DX: G56.22 Lesion of ulnar nerve, left upper limb (principal); I45.10 Unspecified right bundle-branch block ==

== ENCOUNTER → 2021-09-26 | Outpatient (REF) | payer OTHER, MEDICAID ==
[2021-09-26 13:47] LABS: APPEARANCE, URINE HAZY (CLEAR); BACTERIA, URINE AUTO NEGATIVE (NEGATIVE); BILIRUBIN, URINE AUTO NEGATIVE (NEGATIVE); BLOOD, URINE BLOOD 1+ (NEGATIVE); COLOR, URINE AMBER (YELLOW); GLUCOSE, URINE (UA) AUTO NEGATIVE (NEGATIVE); KETONE, URINE AUTO TRACE mg/dL (NEGATIVE); LEUKOCYTE ESTERASE, URINE AUTO 1+ (NEGATIVE); MUCUS, URINE LARGE (NEGATIVE); NITRITE, URINE AUTO NEGATIVE (NEGATIVE); PROTEIN, URINE AUTO NEGATIVE (NEGATIVE); RBC, URINE AUTO 5 /HPF (0-3); SPECIFIC GRAVITY URINE AUTO 1.023 (1.002-1.035); SQUAMOUS EPITHELIAL CELL UR AU 0 /HPF (0-6); WBC, URINE AUTO 11 /HPF (0-3)
== END ==
LOC: M SFHCPLAZ 12:49
PROVIDERS: ATTEND Physician Assistant Medical
DX: I10 Essential (primary) hypertension (principal)

== ENCOUNTER 2021-09-29 03:58 | Emergency (ER) | payer OTHER ==
[~2021-09-29] VITALS: Ht 172.7 cm; Wt 86.0 kg
[2021-09-29] MEDS ORDERED: MORPHINE 4 MG/ML 1ML VIAL/SYRINGE IV ONE (05:30)
[2021-09-29] MEDS ORDERED: ONDANSETRON 4MG/2ML VIAL IV ONE (05:30)
[2021-09-29] MEDS ORDERED: ISOVUE-370 76% 100ML VIAL As Ordered ONE (05:41)
[2021-09-29 06:24] LABS: BASO # 0.1 10^3/uL (0.0-0.2); BASO % 0.3 % (0.0-1.0); EOS % 0.1 % (0.0-3.0); HEMATOCRIT 48.7 % (42.0-52.0); HEMOGLOBIN 16.2 g/dl (13.5-17.5); LYMPH # 1.8 10^3/uL (1.5-5.0); LYMPH % 12.5 % (24.0-44.0); MEAN CORPUSCULAR HEMOGLOBIN 32.8 pg (27.0-33.0); MEAN CORPUSCULAR HGB CONC 33.3 g/dl (32.0-36.5); MEAN CORPUSCULAR VOLUME 98.6 fl (80.0-96.0); MONO # 0.7 10^3/uL (0.0-0.8); MONO % 4.8 % (2.0-8.0); NEUTROPHILS # 11.8 10^3/uL (1.5-8.5); NEUTROPHILS % 81.8 % (36.0-66.0); PLATELET COUNT, AUTOMATED 289 10^3/uL (150-450); RED BLOOD COUNT 4.94 10^6/uL (4.30-6.10); WHITE BLOOD COUNT 14.4 10^3/uL (4.0-10.0)
[2021-09-29 06:33] LABS: INR 1.01; PARTIAL THROMBOPLASTIN TIME 29.5 SECONDS (25.9-37.0); PROTHROMBIN TIME 13.7 SECONDS (12.7-14.5)
[2021-09-29 06:57] LABS: CK-MB VALUE MASS 1.3 NG/ML (<3.6); MB/CK RELATIVE INDEX 0.96 (< OR =4)
[2021-09-29 07:05] LABS: ALBUMIN 3.4 GM/DL (3.2-5.2); ALT/SGPT 27 U/L (12-78); AMYLASE 100 U/L (25-115); BILIRUBIN,DIRECT < 0.1 MG/DL (0.0-0.2); BILIRUBIN,TOTAL 0.8 MG/DL (0.2-1.0); ETHYL ALCOHOL (ETHANOL) 0.012 % (0.000-0.010); LIPASE 159 U/L (73-393); TOTAL PROTEIN 7.7 GM/DL (6.4-8.2)
[2021-09-29] MEDS ORDERED: SERT-141 PO (08:01)
[2021-09-29] MEDS ORDERED: ABIL10TA9 (08:01)
[2021-09-29] MEDS ORDERED: OMEP-173 (08:01)
[2021-09-29 08:58] LABS: APPEARANCE, URINE CLEAR (CLEAR); BACTERIA, URINE AUTO NEGATIVE (NEGATIVE); BILIRUBIN, URINE AUTO NEGATIVE (NEGATIVE); BLOOD, URINE BLOOD NEGATIVE (NEGATIVE); COLOR, URINE YELLOW (YELLOW); GLUCOSE, URINE (UA) AUTO NEGATIVE (NEGATIVE); KETONE, URINE AUTO NEGATIVE (NEGATIVE); LEUKOCYTE ESTERASE, URINE AUTO NEGATIVE (NEGATIVE); NITRITE, URINE AUTO NEGATIVE (NEGATIVE); PROTEIN, URINE AUTO NEGATIVE (NEGATIVE); RBC, URINE AUTO 0 /HPF (0-3); SPECIFIC GRAVITY URINE AUTO 1.021 (1.002-1.035); SQUAMOUS EPITHELIAL CELL UR AU 0 /HPF (0-6); UROBILINOGEN, URINE AUTO 0.2 mg/dL (0.0-2.0); WBC, URINE AUTO 0 /HPF (0-3)
[2021-09-29 09:10] LABS: AMPHETAMINES LEVEL URINE NEGATIVE (NEGATIVE); BARBITURATES URINE NEGATIVE (NEGATIVE); BENZODIAZEPINES URINE NEGATIVE (NEGATIVE); CANNABINOIDS URINE POSITIVE (NEGATIVE); COCAINE METABOLITE URINE NEGATIVE (NEGATIVE); METHADONE URINE NEGATIVE (NEGATIVE); OPIATES URINE POSITIVE (NEGATIVE); PHENCYCLIDINE URINE NEGATIVE (NEGATIVE)
[2021-09-29 09:44] VITALS: BP 107/72
== END 2021-09-29 09:47 | disposition home or self-care (01) ==
LOC: M ED 03:58
DX: S20.219A Contusion of unspecified front wall of thorax, initial encounter (principal); V49.50XA Passenger injured in collision with unspecified motor vehicles in traffic accident, initial encounter; E78.5 Hyperlipidemia, unspecified; J44.9 Chronic obstructive pulmonary disease, unspecified; I10 Essential (primary) hypertension; F17.200 Nicotine dependence, unspecified, uncomplicated; F12.10 Cannabis abuse, uncomplicated; Z88.8 Allergy status to other drugs, medicaments and biological substances; Z79.811 Long term (current) use of aromatase inhibitors; Z79.51 Long term (current) use of inhaled steroids; Z79.899 Other long term (current) drug therapy; Y93.9 Activity, unspecified; Y92.9 Unspecified place or not applicable; Y99.9 Unspecified external cause status
CPT/HCPCS: 71045; 71260; 74177; 80047; 80076; 80307; 81001; 82077; 82150; 82550; 82553; 83605; 83690; 84484; 85025; 85610; 85730; 93041; 94760; 96374; 99285; J2270; J2405; Q9967

== ENCOUNTER → 2021-10-08 | Outpatient (CLI) | payer OTHER ==
[~2021-10-08] MED LIST changes: +ABIL10TA9; +OMEP-173; +SERT-141 PO
[2021-10-08 13:45] LABS: BASO % 0.4 % (0.0-1.0); EOS # 0.2 10^3/uL (0.0-0.5); EOS % 1.8 % (0.0-3.0); HEMOGLOBIN 15.6 g/dl (13.5-17.5); LYMPH % 17.9 % (24.0-44.0); MEAN CORPUSCULAR HEMOGLOBIN 33.2 pg (27.0-33.0); MEAN CORPUSCULAR HGB CONC 33.2 g/dl (32.0-36.5); MONO # 0.7 10^3/uL (0.0-0.8); MONO % 6.4 % (2.0-8.0); PLATELET COUNT, AUTOMATED 336 10^3/uL (150-450)
[2021-10-08 16:03] LABS: ALBUMIN 3.3 GM/DL (3.2-5.2); ALT/SGPT 22 U/L (12-78); BILIRUBIN,TOTAL 0.5 MG/DL (0.2-1.0); BLOOD UREA NITROGEN 11 MG/DL (7-18); CALCIUM LEVEL 9.3 MG/DL (8.5-10.1); CARBON DIOXIDE LEVEL 29 MEQ/L (21-32); CHLORIDE LEVEL 110 MEQ/L (98-107); CREATININE FOR GFR 1.12 MG/DL (0.70-1.30); GLOMERULAR FILTRATION RATE > 60.0 (>60); GLUCOSE, FASTING 97 MG/DL (70-100); POTASSIUM SERUM 4.2 MEQ/L (3.5-5.1); SODIUM LEVEL 144 MEQ/L (136-145); TOTAL PROTEIN 6.8 GM/DL (6.4-8.2)
== END ==
LOC: M PLALAB 09:51
PROVIDERS: ATTEND Physician Assistant Medical
DX: I10 Essential (primary) hypertension (principal)

== ENCOUNTER → 2022-01-15 | Outpatient (REF) | payer OTHER ==
[2022-01-15 19:01] LABS: BASO # 0.1 10^3/uL (0.0-0.2); BASO % 0.5 % (0.0-1.0); EOS % 0.4 % (0.0-3.0); HEMATOCRIT 45.8 % (42.0-52.0); HEMOGLOBIN 14.7 g/dl (13.5-17.5); LYMPH # 1.6 10^3/uL (1.5-5.0); LYMPH % 15.9 % (24.0-44.0); MEAN CORPUSCULAR HEMOGLOBIN 32.8 pg (27.0-33.0); MEAN CORPUSCULAR HGB CONC 32.1 g/dl (32.0-36.5); MEAN CORPUSCULAR VOLUME 102.2 fl (80.0-96.0); MONO # 0.6 10^3/uL (0.0-0.8); MONO % 5.5 % (2.0-8.0); NEUTROPHILS # 7.9 10^3/uL (1.5-8.5); NEUTROPHILS % 77.4 % (36.0-66.0); PLATELET COUNT, AUTOMATED 281 10^3/uL (150-450); RED BLOOD COUNT 4.48 10^6/uL (4.30-6.10); WHITE BLOOD COUNT 10.2 10^3/uL (4.0-10.0)
[2022-01-15 19:32] LABS: ALBUMIN 3.5 GM/DL (3.2-5.2); ALT/SGPT 19 U/L (12-78); BILIRUBIN,TOTAL 0.4 MG/DL (0.2-1.0); BLOOD UREA NITROGEN 14 MG/DL (7-18); CALCIUM LEVEL 9.2 MG/DL (8.5-10.1); CARBON DIOXIDE LEVEL 28 MEQ/L (21-32); CHLORIDE LEVEL 109 MEQ/L (98-107); CREATININE FOR GFR 0.98 MG/DL (0.70-1.30); FREE T4 1.27 NG/DL (0.76-1.46); GLOMERULAR FILTRATION RATE > 60.0 (>56); GLUCOSE, FASTING 73 MG/DL (70-100); POTASSIUM SERUM 4.5 MEQ/L (3.5-5.1); SODIUM LEVEL 142 MEQ/L (136-145); THYROID STIMULATING HORMONE 0.639 uIU/ML (0.358-3.740); TOTAL PROTEIN 6.9 GM/DL (6.4-8.2)
== END ==
LOC: M PLALAB 17:40
PROVIDERS: ATTEND Physician Assistant Medical
DX: E78.49 Other hyperlipidemia (principal); I10 Essential (primary) hypertension; E04.1 Nontoxic single thyroid nodule

== ENCOUNTER → 2022-01-18 | Outpatient (CLI) | payer OTHER | LOC: M WHC 12:38 | PROVIDERS: ATTEND Physician Assistant Medical | DX: E04.1 Nontoxic single thyroid nodule (principal) ==

== ENCOUNTER 2022-02-22 19:28 | Inpatient (IN) | payer MEDICAID, OTHER ==
[~2022-02-22] VITALS: Ht 177.8 cm; Wt 75.2 kg
[~2022-02-22 19:28] MED LIST changes: -ABIL10TA9; +ABIL10TA9 PO; -ALBU8.5H; +ALBU8.5H INH; -ATOR40TA75; +ATOR40TA75 PO; -INCR1INH; +INCR1INH INH; -OMEP-173; +OMEP-173 PO
[2022-02-22 21:26] LABS: BASO # 0.1 10^3/uL (0.0-0.2); BASO % 0.4 % (0.0-1.0); EOS % 0.2 % (0.0-3.0); HEMATOCRIT 42.3 % (42.0-52.0); HEMOGLOBIN 14.6 g/dl (13.5-17.5); LYMPH # 3.2 10^3/uL (1.5-5.0); LYMPH % 19.3 % (24.0-44.0); MEAN CORPUSCULAR HGB CONC 34.5 g/dl (32.0-36.5); MEAN CORPUSCULAR VOLUME 95.7 fl (80.0-96.0); MONO # 1.1 10^3/uL (0.0-0.8); MONO % 6.7 % (2.0-8.0); NEUTROPHILS # 12.3 10^3/uL (1.5-8.5); PLATELET COUNT, AUTOMATED 340 10^3/uL (150-450); RED BLOOD COUNT 4.42 10^6/uL (4.30-6.10); WHITE BLOOD COUNT 16.8 10^3/uL (4.0-10.0)
[2022-02-22 21:37] LABS: BLOOD UREA NITROGEN 29 MG/DL (7-18); CALCIUM LEVEL 9.6 MG/DL (8.5-10.1); CARBON DIOXIDE LEVEL 21 MEQ/L (21-32); CHLORIDE LEVEL 106 MEQ/L (98-107); CREATININE FOR GFR 1.23 MG/DL (0.70-1.30); GLOMERULAR FILTRATION RATE > 60.0 (>56); GLUCOSE, FASTING 102 MG/DL (70-100); POTASSIUM SERUM 3.8 MEQ/L (3.5-5.1); SODIUM LEVEL 137 MEQ/L (136-145)
[2022-02-22 21:47] LABS: ERYTHROCYTE SEDIMENTATION RATE 53 mm/hr (0-20)
[2022-02-22 23:34] LABS: URIC ACID 5.8 MG/DL (3.5-7.2)
[2022-02-22] MEDS ORDERED: diazePAM 10MG/2ML SYRINGE (J3360 PER 5MG) IV ONE (23:45)
[2022-02-22] MEDS ORDERED: ONDANSETRON 4MG 2ML VIAL IV ONE (23:45)
[2022-02-22] MEDS ORDERED: MORPHINE 4 MG/ML 1ML VIAL/SYRINGE IV ONE (23:45)
[2022-02-22] MEDS ORDERED: LIDOCAINE W/EPINEPHRINE 1% 20ML VIAL SC ONE (23:50)
[2022-02-22] MEDS ORDERED: LIDOCAINE W/EPINEPHRINE 1% 20ML VIAL As Ordered ONE (23:51)
[2022-02-23 00:20] LABS: SOURCE, BODY FLUID GLUCOSE RT ANKLE; SOURCE, BODY FLUID URIC ACID RT ANKLE
[2022-02-23 00:22] LABS: SYNOVIAL FLUID COLOR QNS (COLORLESS)
[2022-02-23] MEDS: NS 1,000 ML IV SCH ×2 (00:29→08:19)
[2022-02-23 00:37] LABS: CRYSTALS, BODY FLUID NONE SEEN (NONE SEEN); SOURCE, BODY FLUID CRYSTALS RT ANKLE
[2022-02-23 00:38] LABS: SOURCE, BODY FLUID RT ANKLE
[2022-02-23 01:14] LABS: RSV AMPLIFICATION NEGATIVE (NEGATIVE)
[2022-02-23 02:22] LABS: CRYSTALS, BODY FLUID NONE SEEN (NONE SEEN); SOURCE, BODY FLUID CRYSTALS RT ANKLE
[2022-02-23 02:39] LABS: SOURCE, BODY FLUID RT ANKLE; SYNOVIAL FLUID COLOR PALE YELLOW (COLORLESS)
[2022-02-23] MEDS ORDERED: VANCOMYCIN HCL 750 MG, VIAL MATE ADAPTER 1 EACH in NS 250 ML IV SCH (02:45)
[2022-02-23] MEDS ORDERED: HOME MED LIST COMPLETE! XX SCH (02:55)
[2022-02-23] MEDS ORDERED: VANCOMYCIN HCL 750 MG, VIAL MATE ADAPTER 1 EACH in D5W 250 ML IV ONE ×2 (03:00→04:00)
[2022-02-23] MEDS ORDERED: ALBUTEROL 90 MCG/ACT 8GM HFA INHALER INH PRN (03:05)
[2022-02-23] MEDS ORDERED: NICOTINE 21MG/24HR 1 EA TRANSDERMAL TD ONE (03:05)
[2022-02-23] MEDS ORDERED: KETOROLAC 30 MG/ML 1ML VIAL IV PRN (03:10)
[2022-02-23] MEDS: HEPARIN SOD (PORCINE) 5000UNITS/ML 1ML VIAL/SYRINGE SC SCH ×3 (06:07→21:15)
[2022-02-23 07:22] LABS: C REACTIVE PROTEIN QUANTITATIV 9.52 MG/DL (0.00-0.30)
[2022-02-23 07:41] LABS: ERYTHROCYTE SEDIMENTATION RATE 39 mm/hr (0-20)
[2022-02-23 07:59] VITALS: BP 100/59
[2022-02-23] MEDS ORDERED: cefTRIAXone SOD 1 GM in D5W MINI-BAG PLUS 50 ML IV SCH (08:00)
[2022-02-23 08:19] LABS: BLOOD UREA NITROGEN 27 MG/DL (7-18); CALCIUM LEVEL 8.9 MG/DL (8.5-10.1); CARBON DIOXIDE LEVEL 23 MEQ/L (21-32); CHLORIDE LEVEL 110 MEQ/L (98-107); CREATININE FOR GFR 1.12 MG/DL (0.70-1.30); GLOMERULAR FILTRATION RATE > 60.0 (>56); GLUCOSE, FASTING 124 MG/DL (70-100); POTASSIUM SERUM 3.7 MEQ/L (3.5-5.1); SODIUM LEVEL 141 MEQ/L (136-145)
[2022-02-23] MEDS: SERTRALINE HCL 50 MG TAB PO SCH (08:19)
[2022-02-23] MEDS: OMEPRAZOLE 20MG CAP PO SCH (08:19)
[2022-02-23] MEDS: tiZANidine 4 MG TAB PO SCH ×3 (08:19→21:14)
[2022-02-23] MEDS: NORTRIPTYLINE 25 MG CAP PO SCH ×3 (08:19→21:14)
[2022-02-23 09:16] LABS: BASO # 0.1 10^3/uL (0.0-0.2); BASO % 0.4 % (0.0-1.0); EOS # 0.1 10^3/uL (0.0-0.5); EOS % 0.8 % (0.0-3.0); HEMATOCRIT 40.7 % (42.0-52.0); HEMOGLOBIN 13.7 g/dl (13.5-17.5); LYMPH # 2.8 10^3/uL (1.5-5.0); LYMPH % 20.7 % (24.0-44.0); MEAN CORPUSCULAR HEMOGLOBIN 32.9 pg (27.0-33.0); MEAN CORPUSCULAR HGB CONC 33.7 g/dl (32.0-36.5); MEAN CORPUSCULAR VOLUME 97.8 fl (80.0-96.0); MONO # 1.3 10^3/uL (0.0-0.8); MONO % 9.6 % (2.0-8.0); PLATELET COUNT, AUTOMATED 285 10^3/uL (150-450); RED BLOOD COUNT 4.16 10^6/uL (4.30-6.10); WHITE BLOOD COUNT 13.3 10^3/uL (4.0-10.0)
[2022-02-23] MEDS ORDERED: COLCHICINE 0.6 MG TABLET PO ONE (11:15)
[2022-02-23] MEDS: VANCOMYCIN HCL 1,000 MG, VIAL MATE ADAPTER 1 EACH in D5W 250 ML IV SCH ×2 (13:48→21:15)
[2022-02-23 14:00] VITALS: BP 107/59
[2022-02-23 16:00] VITALS: BP 102/68
[2022-02-23] MEDS: IBUPROFEN 800 MG TAB PO PRN (17:48)
[2022-02-23] MEDS: lisinopriL 5 MG TAB PO SCH (21:00)
[2022-02-23] MEDS: ATORVASTATIN 20 MG TAB PO SCH (21:14)
[2022-02-23] MEDS: ARIPiprazole 10 MG TAB PO SCH (21:14)
[2022-02-23] MEDS: ACETAMINOPHEN TAB 650MG DOSE (2X325MG) PO PRN (21:33)
[2022-02-23 21:47] VITALS: BP 104/67
[2022-02-24] MEDS: HEPARIN SOD (PORCINE) 5000UNITS/ML 1ML VIAL/SYRINGE SC SCH ×3 (05:16→21:38)
[2022-02-24] MEDS: VANCOMYCIN HCL 1,000 MG, VIAL MATE ADAPTER 1 EACH in D5W 250 ML IV SCH ×4 (05:16→21:39)
[2022-02-24 05:34] LABS: HEMATOCRIT 42.9 % (42.0-52.0); MEAN CORPUSCULAR HEMOGLOBIN 33.3 pg (27.0-33.0); MEAN CORPUSCULAR HGB CONC 32.6 g/dl (32.0-36.5); MEAN CORPUSCULAR VOLUME 101.9 fl (80.0-96.0); PLATELET COUNT, AUTOMATED 286 10^3/uL (150-450); RED BLOOD COUNT 4.21 10^6/uL (4.30-6.10); WHITE BLOOD COUNT 6.7 10^3/uL (4.0-10.0)
[2022-02-24 06:11] VITALS: BP 114/51
[2022-02-24 06:13] LABS: BLOOD UREA NITROGEN 21 MG/DL (7-18); CALCIUM LEVEL 8.9 MG/DL (8.5-10.1); CARBON DIOXIDE LEVEL 27 MEQ/L (21-32); CHLORIDE LEVEL 109 MEQ/L (98-107); CREATININE FOR GFR 1.04 MG/DL (0.70-1.30); GLOMERULAR FILTRATION RATE > 60.0 (>56); GLUCOSE, FASTING 95 MG/DL (70-100); POTASSIUM SERUM 4.3 MEQ/L (3.5-5.1); SODIUM LEVEL 140 MEQ/L (136-145)
[2022-02-24] MEDS: tiZANidine 4 MG TAB PO SCH ×3 (09:54→21:39)
[2022-02-24] MEDS: NORTRIPTYLINE 25 MG CAP PO SCH ×3 (09:54→21:39)
[2022-02-24] MEDS: OMEPRAZOLE 20MG CAP PO SCH (09:54)
[2022-02-24] MEDS: SERTRALINE HCL 50 MG TAB PO SCH (09:54)
[2022-02-24 14:00] VITALS: BP 100/55
[2022-02-24] MEDS: ACETAMINOPHEN TAB 650MG DOSE (2X325MG) PO PRN (15:10)
[2022-02-24 20:00] VITALS: BP 101/60
[2022-02-24 21:00] VITALS: BP 101/60
[2022-02-24] MEDS: lisinopriL 5 MG TAB PO SCH (21:00)
[2022-02-24] MEDS: ARIPiprazole 10 MG TAB PO SCH (21:39)
[2022-02-24] MEDS: ATORVASTATIN 20 MG TAB PO SCH (21:39)
[2022-02-24] MEDS: IBUPROFEN 800 MG TAB PO PRN (22:01)
[2022-02-25 05:56] VITALS: BP 108/63
[2022-02-25] MEDS: HEPARIN SOD (PORCINE) 5000UNITS/ML 1ML VIAL/SYRINGE SC SCH (06:13)
[2022-02-25] MEDS ORDERED: IBUP-1114 PO (08:58)
[2022-02-25] MEDS ORDERED: TETR1CAP2 PO (08:58)
[2022-02-25 09:28] LABS: BASO # 0.1 10^3/uL (0.0-0.2); BASO % 0.8 % (0.0-1.0); EOS # 0.2 10^3/uL (0.0-0.5); EOS % 3.2 % (0.0-3.0); HEMATOCRIT 45.2 % (42.0-52.0); HEMOGLOBIN 14.5 g/dl (13.5-17.5); LYMPH # 2.9 10^3/uL (1.5-5.0); LYMPH % 45.6 % (24.0-44.0); MEAN CORPUSCULAR HEMOGLOBIN 32.6 pg (27.0-33.0); MEAN CORPUSCULAR HGB CONC 32.1 g/dl (32.0-36.5); MEAN CORPUSCULAR VOLUME 101.6 fl (80.0-96.0); MONO # 0.5 10^3/uL (0.0-0.8); MONO % 8.6 % (2.0-8.0); NEUTROPHILS # 2.6 10^3/uL (1.5-8.5); NEUTROPHILS % 41.6 % (36.0-66.0); PLATELET COUNT, AUTOMATED 331 10^3/uL (150-450); RED BLOOD COUNT 4.45 10^6/uL (4.30-6.10); WHITE BLOOD COUNT 6.3 10^3/uL (4.0-10.0)
[2022-02-25] MEDS: tiZANidine 4 MG TAB PO SCH (09:35)
[2022-02-25] MEDS: OMEPRAZOLE 20MG CAP PO SCH (09:35)
[2022-02-25] MEDS: SERTRALINE HCL 50 MG TAB PO SCH (09:35)
[2022-02-25] MEDS: NORTRIPTYLINE 25 MG CAP PO SCH (09:35)
[2022-02-25 10:06] LABS: BLOOD UREA NITROGEN 16 MG/DL (7-18); CALCIUM LEVEL 9.4 MG/DL (8.5-10.1); CARBON DIOXIDE LEVEL 27 MEQ/L (21-32); CHLORIDE LEVEL 110 MEQ/L (98-107); CREATININE FOR GFR 1.07 MG/DL (0.70-1.30); GLOMERULAR FILTRATION RATE > 60.0 (>56); GLUCOSE, FASTING 97 MG/DL (70-100); POTASSIUM SERUM 4.3 MEQ/L (3.5-5.1); SODIUM LEVEL 141 MEQ/L (136-145)
[2022-02-25] MEDS ORDERED: DOXY100T27 PO (15:14)
[2022-02-25] MEDS ORDERED: VANCOMYCIN HCL 750 MG, VIAL MATE ADAPTER 1 EACH in D5W 250 ML IV SCH (19:00)
[2022-02-26] MEDS ORDERED: MINO100T PO (16:43)
== END 2022-02-25 11:30 | disposition home or self-care (01) | DRG 344 ==
LOC: M ED 19:28 → M ED INP 02-23 03:15 → M MS5PR 02-23 15:55
PROVIDERS: ADMIT Family Medicine; ATTEND Internal Medicine
PROC: 0S9F3ZZ Drainage of Right Ankle Joint, Percutaneous Approach (ICD-10-PCS; principal; 2022-02-23)
DX: M00.871 Arthritis due to other bacteria, right ankle and foot (principal); L03.115 Cellulitis of right lower limb; I10 Essential (primary) hypertension; F20.9 Schizophrenia, unspecified; J44.9 Chronic obstructive pulmonary disease, unspecified; E11.9 Type 2 diabetes mellitus without complications; K21.9 Gastro-esophageal reflux disease without esophagitis; M10.9 Gout, unspecified; E78.5 Hyperlipidemia, unspecified; F17.200 Nicotine dependence, unspecified, uncomplicated; Z79.899 Other long term (current) drug therapy; Z88.8 Allergy status to other drugs, medicaments and biological substances; F10.10 Alcohol abuse, uncomplicated

== ENCOUNTER 2022-04-28 14:58 | Inpatient (IN) | payer MEDICAID, OTHER ==
[~2022-04-28] VITALS: Ht 177.8 cm; Wt 74.6 kg
[~2022-04-28 14:58] MED LIST changes: +DOXY100T27 PO; +IBUP-1114 PO; +MINO100T PO; +TETR1CAP2 PO
[2022-04-28 16:33] LABS: BASO % 0.4 % (0.0-1.0); EOS # 0.2 10^3/uL (0.0-0.5); EOS % 2.1 % (0.0-3.0); HEMATOCRIT 42.8 % (42.0-52.0); HEMOGLOBIN 14.3 g/dl (13.5-17.5); LYMPH # 2.8 10^3/uL (1.5-5.0); LYMPH % 29.1 % (24.0-44.0); MEAN CORPUSCULAR HEMOGLOBIN 32.6 pg (27.0-33.0); MEAN CORPUSCULAR HGB CONC 33.4 g/dl (32.0-36.5); MEAN CORPUSCULAR VOLUME 97.5 fl (80.0-96.0); MONO % 10.4 % (2.0-8.0); NEUTROPHILS # 5.5 10^3/uL (1.5-8.5); NEUTROPHILS % 57.7 % (36.0-66.0); PLATELET COUNT, AUTOMATED 304 10^3/uL (150-450); RED BLOOD COUNT 4.39 10^6/uL (4.30-6.10); WHITE BLOOD COUNT 9.5 10^3/uL (4.0-10.0)
[2022-04-28 16:58] LABS: ERYTHROCYTE SEDIMENTATION RATE 33 mm/hr (0-20)
[2022-04-28] MEDS ORDERED: VANCOMYCIN HCL 1,500 MG in NS 250 ML IV ONE (17:05)
[2022-04-28 17:54] LABS: RSV AMPLIFICATION NEGATIVE (NEGATIVE)
[2022-04-28] MEDS ORDERED: VANCOMYCIN HCL 750 MG, VIAL MATE ADAPTER 1 EACH in D5W 250 ML IV ONE ×6 (18:00)
[2022-04-28] MEDS ORDERED: IBUP200T46 PO (18:52)
[2022-04-28] MEDS ORDERED: HOME MED LIST COMPLETE! XX SCH (18:55)
[2022-04-28] MEDS ORDERED: tiZANidine 4 MG TAB PO PRN (19:30)
[2022-04-28] MEDS ORDERED: ALBUTEROL 90 MCG/ACT 8GM HFA INHALER INH PRN (19:30)
[2022-04-28] MEDS ORDERED: ACETAMINOPHEN TAB 650MG DOSE (2X325MG) PO PRN (19:30)
[2022-04-28 19:39] LABS: CK-MB VALUE MASS 8.5 NG/ML (<3.6)
[2022-04-28 19:44] LABS: MB/CK RELATIVE INDEX 1.41 (< OR =4)
[2022-04-28] MEDS ORDERED: PILL CUTTER 1 EACH XX PRN (20:15)
[2022-04-28] MEDS ORDERED: lisinopriL 5 MG TAB PO SCH (21:00)
[2022-04-28] MEDS ORDERED: IPRATROPIUM 0.5MG/ALBUTEROL 2.5MG INH SOL UD 3ML (DUONEB) NEB PRN (21:15)
[2022-04-28] MEDS ORDERED: LORazepam 2 MG TAB PO PRN (23:25)
[2022-04-28] MEDS: NORTRIPTYLINE 25 MG CAP PO SCH (23:30)
[2022-04-28] MEDS: ARIPiprazole 10 MG TAB PO SCH (23:30)
[2022-04-28] MEDS: ATORVASTATIN 20 MG TAB PO SCH (23:30)
[2022-04-28] MEDS: THIAMINE 100 MG TAB PO SCH (23:50)
[2022-04-29] MEDS: VANCOMYCIN HCL 1,000 MG, VIAL MATE ADAPTER 1 EACH in D5W 250 ML IV SCH ×2 (06:50→17:53)
[2022-04-29 06:55] LABS: HEMATOCRIT 44.6 % (42.0-52.0); HEMOGLOBIN 14.8 g/dl (13.5-17.5); MEAN CORPUSCULAR HEMOGLOBIN 33.3 pg (27.0-33.0); MEAN CORPUSCULAR HGB CONC 33.2 g/dl (32.0-36.5); MEAN CORPUSCULAR VOLUME 100.5 fl (80.0-96.0); PLATELET COUNT, AUTOMATED 263 10^3/uL (150-450); RED BLOOD COUNT 4.44 10^6/uL (4.30-6.10); WHITE BLOOD COUNT 8.5 10^3/uL (4.0-10.0)
[2022-04-29 07:14] LABS: ERYTHROCYTE SEDIMENTATION RATE 30 mm/hr (0-20)
[2022-04-29 07:23] LABS: ALBUMIN 3.4 G/DL (3.2-5.2); ALKALINE PHOSPHATASE 97 U/L (46-116); ALT/SGPT 11 U/L (7.0-40); AST/SGOT 28 U/L (<34); BILIRUBIN,TOTAL 1.3 MG/DL (0.3-1.2); BLOOD UREA NITROGEN 22 MG/DL (9-23); CALCIUM LEVEL 8.9 MG/DL (8.5-10.1); CARBON DIOXIDE LEVEL 26 MMOL/L (20-31); CHLORIDE LEVEL 109 MMOL/L (98-107); CPK CREATINE PHOSPHOKINASE 492 U/L (46-171); CREATININE FOR GFR 0.96 MG/DL (0.70-1.30); GLOMERULAR FILTRATION RATE > 60.0 (>56); GLUCOSE, FASTING 88 MG/DL (60-100); POTASSIUM SERUM 4.3 MMOL/L (3.5-5.1); SODIUM LEVEL 142 MMOL/L (136-145); TOTAL PROTEIN 6.8 G/DL (5.7-8.2)
[2022-04-29 08:00] VITALS: BP 115/66
[2022-04-29] MEDS: TIOTROPIUM INHALER/CAPSULE (SPIRIVA) INH SCH (08:05)
[2022-04-29] MEDS: PYRIDOXINE 50 MG TAB PO SCH (08:24)
[2022-04-29] MEDS: FOLIC ACID 1MG TAB PO SCH (08:24)
[2022-04-29] MEDS: SERTRALINE HCL 50 MG TAB PO SCH (08:24)
[2022-04-29] MEDS: MULTIVITAMINS/MINERALS THERAP 1 TAB PO SCH (08:24)
[2022-04-29] MEDS: THIAMINE 100 MG TAB PO SCH ×2 (08:24→20:09)
[2022-04-29] MEDS: ENOXAPARIN 40MG/0.4ML SYRINGE (J1650 PER 10MG) SC SCH (08:24)
[2022-04-29] MEDS: NORTRIPTYLINE 25 MG CAP PO SCH ×3 (08:24→20:10)
[2022-04-29] MEDS: OMEPRAZOLE 20MG CAP PO SCH (08:24)
[2022-04-29] MEDS: IBUPROFEN 400MG TAB PO PRN ×2 (08:25→20:09)
[2022-04-29 11:23] VITALS: BP_SYST 107; BP_SYST 110; BP_SYST 99; BP_DIAS 52; BP_DIAS 55
[2022-04-29 13:12] VITALS: BP 106/62
[2022-04-29 14:00] VITALS: BP 106/62
[2022-04-29 20:00] VITALS: BP 105/60
[2022-04-29] MEDS: ARIPiprazole 10 MG TAB PO SCH (20:09)
[2022-04-29] MEDS: ATORVASTATIN 20 MG TAB PO SCH (20:09)
[2022-04-29 21:00] VITALS: BP 105/60
[2022-04-30 06:00] VITALS: BP 114/67
[2022-04-30 06:09] VITALS: BP_SYST 105; BP_SYST 110; BP_SYST 114; BP_DIAS 61; BP_DIAS 67; BP_DIAS 69
[2022-04-30 06:10] VITALS: BP 114/67
[2022-04-30 06:13] LABS: VANCOMYCIN LEVEL TROUGH 15.2 UG/ML (10.0-20.0)
[2022-04-30] MEDS: VANCOMYCIN HCL 1,000 MG, VIAL MATE ADAPTER 1 EACH in D5W 250 ML IV SCH (06:31)
[2022-04-30] MEDS: TIOTROPIUM INHALER/CAPSULE (SPIRIVA) INH SCH (07:45)
[2022-04-30 08:16] LABS: ALKALINE PHOSPHATASE 85 U/L (46-116); ALT/SGPT < 9 U/L (7.0-40); AST/SGOT 21 U/L (<34); BILIRUBIN,TOTAL 0.7 MG/DL (0.3-1.2); BLOOD UREA NITROGEN 20 MG/DL (9-23); CALCIUM LEVEL 8.4 MG/DL (8.5-10.1); CARBON DIOXIDE LEVEL 26 MMOL/L (20-31); CHLORIDE LEVEL 109 MMOL/L (98-107); GLOMERULAR FILTRATION RATE > 60.0 (>56); GLUCOSE, FASTING 86 MG/DL (60-100); POTASSIUM SERUM 4.5 MMOL/L (3.5-5.1); SODIUM LEVEL 141 MMOL/L (136-145); TOTAL PROTEIN 6.1 G/DL (5.7-8.2)
[2022-04-30] MEDS: MULTIVITAMINS/MINERALS THERAP 1 TAB PO SCH (09:12)
[2022-04-30] MEDS: NORTRIPTYLINE 25 MG CAP PO SCH ×2 (09:13→17:04)
[2022-04-30] MEDS: OMEPRAZOLE 20MG CAP PO SCH (09:13)
[2022-04-30] MEDS: PYRIDOXINE 50 MG TAB PO SCH (09:13)
[2022-04-30] MEDS: IBUPROFEN 400MG TAB PO PRN ×2 (09:13→17:05)
[2022-04-30] MEDS: SERTRALINE HCL 50 MG TAB PO SCH (09:13)
[2022-04-30] MEDS: FOLIC ACID 1MG TAB PO SCH (09:14)
[2022-04-30] MEDS: THIAMINE 100 MG TAB PO SCH (09:14)
[2022-04-30] MEDS: ENOXAPARIN 40MG/0.4ML SYRINGE (J1650 PER 10MG) SC SCH (09:14)
[2022-04-30] MEDS ORDERED: DALV1SOL IV (16:12)
== END 2022-04-30 18:13 | disposition home or self-care (01) | DRG 383 ==
LOC: M ED 14:58 → M ED INP 19:30 → ENRESERV 04-29 12:37 → M MSPAV 04-29 13:18
PROVIDERS: ADMIT Family Medicine; ATTEND Student in an Organized Health Care Education/Training Program
DX: L03.116 Cellulitis of left lower limb (principal); M48.02 Spinal stenosis, cervical region; I10 Essential (primary) hypertension; F20.9 Schizophrenia, unspecified; E04.1 Nontoxic single thyroid nodule; E78.5 Hyperlipidemia, unspecified; F10.10 Alcohol abuse, uncomplicated; F17.200 Nicotine dependence, unspecified, uncomplicated; F41.1 Generalized anxiety disorder; J44.9 Chronic obstructive pulmonary disease, unspecified; K21.9 Gastro-esophageal reflux disease without esophagitis; M47.812 Spondylosis without myelopathy or radiculopathy, cervical region; Z79.899 Other long term (current) drug therapy; Z88.8 Allergy status to other drugs, medicaments and biological substances; Z66 Do not resuscitate

== ENCOUNTER 2022-05-01 15:57 | Outpatient (CLI) | payer OTHER ==
[~2022-05-01] VITALS: Ht 177.8 cm; Wt 81.8 kg
[~2022-05-01 15:57] MED LIST changes: +DALV1SOL IV; +IBUP200T46 PO
[2022-05-01 16:30] VITALS: BP 115/65
[2022-05-01] MEDS ORDERED: DALBAVANCIN 1,500 MG in D5W 250 ML IV ONE (17:00)
[2022-05-01 18:30] VITALS: BP 114/64
== END 2022-05-01 18:30 | disposition home or self-care (01) ==
LOC: M INFU 15:57
PROVIDERS: ATTEND Student in an Organized Health Care Education/Training Program
DX: L03.116 Cellulitis of left lower limb (principal); Z88.2 Allergy status to sulfonamides
CPT/HCPCS: 96365; J0875

== ENCOUNTER → 2022-05-03 | Outpatient (CLI) | payer OTHER ==
[2022-05-03 19:33] LABS: BASO # 0.1 10^3/uL (0.0-0.2); BASO % 0.6 % (0.0-1.0); EOS # 0.1 10^3/uL (0.0-0.5); EOS % 1.2 % (0.0-3.0); HEMATOCRIT 42.5 % (42.0-52.0); HEMOGLOBIN 13.9 g/dl (13.5-17.5); LYMPH # 1.6 10^3/uL (1.5-5.0); LYMPH % 17.5 % (24.0-44.0); MEAN CORPUSCULAR HEMOGLOBIN 32.6 pg (27.0-33.0); MEAN CORPUSCULAR HGB CONC 32.7 g/dl (32.0-36.5); MEAN CORPUSCULAR VOLUME 99.8 fl (80.0-96.0); MONO # 0.8 10^3/uL (0.0-0.8); MONO % 8.8 % (2.0-8.0); NEUTROPHILS # 6.4 10^3/uL (1.5-8.5); NEUTROPHILS % 71.6 % (36.0-66.0); PLATELET COUNT, AUTOMATED 293 10^3/uL (150-450); RED BLOOD COUNT 4.26 10^6/uL (4.30-6.10); WHITE BLOOD COUNT 8.9 10^3/uL (4.0-10.0)
[2022-05-03 20:16] LABS: ERYTHROCYTE SEDIMENTATION RATE 25 mm/hr (0-20)
== END ==
LOC: M PLALAB 15:04
PROVIDERS: ATTEND Physician Assistant Medical
DX: L03.119 Cellulitis of unspecified part of limb (principal)

== ENCOUNTER 2022-05-08 16:30 | Outpatient (CLI) | payer OTHER ==
[~2022-05-08] VITALS: Ht 177.8 cm; Wt 77.2 kg
[2022-05-08 16:20] VITALS: BP 140/80
[~2022-05-08 16:30] MED LIST changes: +D5W IV ONE; +DALBAVANCIN IV ONE
[2022-05-08 17:36] VITALS: BP 128/88
== END 2022-05-08 17:45 ==
LOC: M INFU 16:30
PROVIDERS: ATTEND Physician Assistant Medical
DX: L03.90 Cellulitis, unspecified (principal); F20.9 Schizophrenia, unspecified; Z88.2 Allergy status to sulfonamides
CPT/HCPCS: 96365; J0875

== ENCOUNTER 2022-06-17 14:52 | Emergency (ER) | payer OTHER, MEDICAID ==
[~2022-06-17] VITALS: Ht 177.8 cm; Wt 77.3 kg
[~2022-06-17 14:52] MED LIST changes: -D5W IV ONE; -DALBAVANCIN IV ONE
[2022-06-17] MEDS ORDERED: DOXYCYCLINE HYCLATE 100MG TABLET PO ONE (19:50)
[2022-06-17] MEDS ORDERED: OFLOXACIN 0.3 % (OCUFLOX) OPTH SOL 5ML OU ONE (19:50)
[2022-06-17] MEDS ORDERED: DOXY-443 PO (20:02)
[2022-06-17] MEDS ORDERED: OCUF0.25 OU (20:02)
[2022-06-17 20:32] VITALS: BP 128/82
== END 2022-06-17 20:43 | disposition home or self-care (01) ==
LOC: M ED 14:52
DX: H10.31 Unspecified acute conjunctivitis, right eye (principal); H01.003 Unspecified blepharitis right eye, unspecified eyelid; F17.200 Nicotine dependence, unspecified, uncomplicated; I10 Essential (primary) hypertension; Z88.2 Allergy status to sulfonamides; Z79.52 Long term (current) use of systemic steroids; Z79.811 Long term (current) use of aromatase inhibitors; Z79.899 Other long term (current) drug therapy

== ENCOUNTER 2022-08-22 13:30 | Inpatient (IN) | payer MEDICAID, OTHER ==
[~2022-08-22] VITALS: Ht 177.8 cm; Wt 74.6 kg
[~2022-08-22 13:30] MED LIST changes: +DOXY-443 PO; +OCUF0.25 OU
[2022-08-22 14:41] LABS: BASO # 0.1 10^3/uL (0.0-0.2); BASO % 0.4 % (0.0-1.0); EOS # 0.1 10^3/uL (0.0-0.5); EOS % 0.3 % (0.0-3.0); HEMOGLOBIN 16.1 g/dl (13.5-17.5); LYMPH # 1.9 10^3/uL (1.5-5.0); LYMPH % 12.2 % (24.0-44.0); MEAN CORPUSCULAR HEMOGLOBIN 32.8 pg (27.0-33.0); MEAN CORPUSCULAR HGB CONC 32.9 g/dl (32.0-36.5); MEAN CORPUSCULAR VOLUME 99.8 fl (80.0-96.0); MONO % 6.2 % (2.0-8.0); NEUTROPHILS # 12.6 10^3/uL (1.5-8.5); NEUTROPHILS % 80.6 % (36.0-66.0); PLATELET COUNT, AUTOMATED 344 10^3/uL (150-450); RED BLOOD COUNT 4.91 10^6/uL (4.30-6.10); WHITE BLOOD COUNT 15.6 10^3/uL (4.0-10.0)
[2022-08-22 15:08] LABS: SALICYLATE LEVEL < 3.0 MG/DL (<30)
[2022-08-22 15:09] LABS: ACETAMINOPHEN LEVEL < 2.0 UG/ML (10.0-20.0); ALKALINE PHOSPHATASE 135 U/L (46-116); ALT/SGPT 22 U/L (7.0-40); AST/SGOT 26 U/L (<34); BILIRUBIN,DIRECT 0.2 MG/DL (<0.4); BILIRUBIN,TOTAL 0.8 MG/DL (0.3-1.2); BLOOD UREA NITROGEN 14 MG/DL (9-23); CARBON DIOXIDE LEVEL 28 MMOL/L (20-31); CHLORIDE LEVEL 107 MMOL/L (98-107); CREATININE FOR GFR 1.02 MG/DL (0.70-1.30); ETHYL ALCOHOL (ETHANOL) 0.003 % (0.000-0.010); GLOMERULAR FILTRATION RATE > 60.0 (>56); GLUCOSE, FASTING 109 MG/DL (60-100); POTASSIUM SERUM 3.9 MMOL/L (3.5-5.1); SODIUM LEVEL 143 MMOL/L (136-145); TOTAL PROTEIN 7.7 G/DL (5.7-8.2)
[2022-08-22 15:11] LABS: THYROID STIMULATING HORMONE 1.013 uIU/ML (0.55-4.78)
[2022-08-22 17:55] LABS: AMPHETAMINES LEVEL URINE NEGATIVE (NEGATIVE)
[2022-08-22 17:56] LABS: BARBITURATES URINE NEGATIVE (NEGATIVE); BENZODIAZEPINES URINE NEGATIVE (NEGATIVE); COCAINE METABOLITE URINE NEGATIVE (NEGATIVE); METHADONE URINE NEGATIVE (NEGATIVE); OPIATES URINE NEGATIVE (NEGATIVE); PHENCYCLIDINE URINE NEGATIVE (NEGATIVE)
[2022-08-22 18:02] LABS: CANNABINOIDS URINE POSITIVE (NEGATIVE)
[2022-08-23] MEDS ORDERED: ACETAMINOPHEN TAB 650MG DOSE (2X325MG) PO PRN (01:30)
[2022-08-23] MEDS ORDERED: MAALOX 30 ML SUSP *UDC PO PRN (01:30)
[2022-08-23] MEDS ORDERED: IBUPROFEN 400MG TAB PO PRN (01:30)
[2022-08-23] MEDS ORDERED: MOM 30ML SUSPENSION UDC PO PRN (01:30)
[2022-08-23] MEDS: traZODone 50 MG TAB PO PRN (01:54)
[2022-08-23 01:59] VITALS: BP 141/69
[2022-08-23] MEDS ORDERED: HOME MED LIST COMPLETE! XX SCH (08:15)
[2022-08-23] MEDS: NICOTINE 21MG/24HR 1 EA TRANSDERMAL TD SCH (09:00)
[2022-08-23] MEDS: PYRIDOXINE 50 MG TAB PO SCH (09:00)
[2022-08-23] MEDS: SERTRALINE HCL 50 MG TAB PO SCH (09:00)
[2022-08-23] MEDS: ARIPiprazole 10 MG TAB PO SCH ×3 (09:00→22:12)
[2022-08-23] MEDS ORDERED: ALBUTEROL 90 MCG/ACT 8GM HFA INHALER INH PRN (09:45)
[2022-08-23 18:44] VITALS: BP 123/67
[2022-08-23] MEDS: lisinopriL 5 MG TAB PO SCH ×2 (21:00→22:13)
[2022-08-23] MEDS: ATORVASTATIN 20 MG TAB PO SCH ×2 (21:00→22:12)
[2022-08-23] MEDS: IPRATROPIUM HFA INHALER 12.9 GRAMS (ATROVENT HFA) INH SCH (21:00)
[2022-08-24 06:23] VITALS: BP 138/91
[2022-08-24] MEDS: PYRIDOXINE 50 MG TAB PO SCH (07:53)
[2022-08-24] MEDS: NICOTINE 21MG/24HR 1 EA TRANSDERMAL TD SCH (07:54)
[2022-08-24] MEDS: SERTRALINE HCL 50 MG TAB PO SCH (07:54)
[2022-08-24] MEDS: OMEPRAZOLE 20MG CAP PO SCH (07:54)
[2022-08-24] MEDS: IPRATROPIUM HFA INHALER 12.9 GRAMS (ATROVENT HFA) INH SCH ×2 (07:54→20:49)
[2022-08-24] MEDS: ARIPiprazole 10 MG TAB PO SCH ×2 (07:54→20:48)
[2022-08-24 08:03] LABS: CHOLESTEROL RISK RATIO 7.78 (<5)
[2022-08-24 16:21] VITALS: BP 104/69
[2022-08-24] MEDS: ATORVASTATIN 20 MG TAB PO SCH (20:48)
[2022-08-24] MEDS: lisinopriL 5 MG TAB PO SCH (20:49)
[2022-08-25 06:44] VITALS: BP 119/69
[2022-08-25] MEDS: NICOTINE 21MG/24HR 1 EA TRANSDERMAL TD SCH (07:51)
[2022-08-25] MEDS: ARIPiprazole 10 MG TAB PO SCH ×2 (07:53→21:37)
[2022-08-25] MEDS: IPRATROPIUM HFA INHALER 12.9 GRAMS (ATROVENT HFA) INH SCH ×2 (07:53→21:37)
[2022-08-25] MEDS: PYRIDOXINE 50 MG TAB PO SCH (07:53)
[2022-08-25] MEDS: OMEPRAZOLE 20MG CAP PO SCH (07:53)
[2022-08-25] MEDS: SERTRALINE HCL 50 MG TAB PO SCH (07:53)
[2022-08-25] MEDS: tiZANidine 4 MG TAB PO PRN (14:16)
[2022-08-25 16:42] VITALS: BP 117/63
[2022-08-25] MEDS: ATORVASTATIN 20 MG TAB PO SCH (21:37)
[2022-08-25] MEDS: lisinopriL 5 MG TAB PO SCH (21:37)
[2022-08-26 06:31] VITALS: BP 109/63
[2022-08-26] MEDS: IPRATROPIUM HFA INHALER 12.9 GRAMS (ATROVENT HFA) INH SCH ×2 (08:22→20:45)
[2022-08-26] MEDS: PYRIDOXINE 50 MG TAB PO SCH (08:23)
[2022-08-26] MEDS: OMEPRAZOLE 20MG CAP PO SCH (08:23)
[2022-08-26] MEDS: NICOTINE 21MG/24HR 1 EA TRANSDERMAL TD SCH (08:23)
[2022-08-26] MEDS: SERTRALINE HCL 50 MG TAB PO SCH (08:23)
[2022-08-26] MEDS: tiZANidine 4 MG TAB PO PRN ×2 (08:23→20:46)
[2022-08-26] MEDS: ARIPiprazole 10 MG TAB PO SCH (08:23)
[2022-08-26 18:00] VITALS: BP 121/64
[2022-08-26] MEDS: ATORVASTATIN 20 MG TAB PO SCH (20:46)
[2022-08-26 20:48] VITALS: BP 133/70
[2022-08-26] MEDS: lisinopriL 5 MG TAB PO SCH (20:48)
[2022-08-26] MEDS ORDERED: ARIPiprazole 10 MG TAB PO SCH (21:00)
[2022-08-26] MEDS: traZODone 50 MG TAB PO PRN (21:45)
[2022-08-27 06:39] VITALS: BP 118/56
[2022-08-27] MEDS ORDERED: ABIL10TA9 PO (07:43)
[2022-08-27] MEDS ORDERED: SERT-141 PO (07:43)
[2022-08-27] MEDS ORDERED: TRAZ-252 PO (07:43)
[2022-08-27] MEDS ORDERED: NICO21PAT TD (07:43)
[2022-08-27] MEDS: OMEPRAZOLE 20MG CAP PO SCH (08:13)
[2022-08-27] MEDS: SERTRALINE HCL 50 MG TAB PO SCH (08:13)
[2022-08-27] MEDS: PYRIDOXINE 50 MG TAB PO SCH (08:13)
[2022-08-27] MEDS: IPRATROPIUM HFA INHALER 12.9 GRAMS (ATROVENT HFA) INH SCH (08:13)
[2022-08-27] MEDS: NICOTINE 21MG/24HR 1 EA TRANSDERMAL TD SCH (08:16)
[2022-08-27] MEDS: tiZANidine 4 MG TAB PO PRN (10:22)
== END 2022-08-27 13:06 | disposition home or self-care (01) | DRG 750 ==
LOC: M ED 13:30 → M ED INP 23:35 → M PSY 08-23 01:46
PROVIDERS: ADMIT Student in an Organized Health Care Education/Training Program; ATTEND Student in an Organized Health Care Education/Training Program
DX: F20.9 Schizophrenia, unspecified (principal); G62.9 Polyneuropathy, unspecified; I10 Essential (primary) hypertension; F12.90 Cannabis use, unspecified, uncomplicated; Z79.899 Other long term (current) drug therapy; Z88.8 Allergy status to other drugs, medicaments and biological substances; J44.9 Chronic obstructive pulmonary disease, unspecified; K21.9 Gastro-esophageal reflux disease without esophagitis; E78.5 Hyperlipidemia, unspecified; F17.200 Nicotine dependence, unspecified, uncomplicated; E04.1 Nontoxic single thyroid nodule; M47.892 Other spondylosis, cervical region; M51.36 Other intervertebral disc degeneration, lumbar region

== ENCOUNTER 2022-10-21 01:29 | Inpatient (IN) | payer MEDICAID, OTHER ==
[~2022-10-21] VITALS: Ht 180.3 cm; Wt 78.0 kg
[~2022-10-21 01:29] MED LIST changes: +NICO21PAT TD; +TRAZ-252 PO
[2022-10-21 02:24] LABS: HEMATOCRIT 44.6 % (42.0-52.0); HEMOGLOBIN 14.7 g/dl (13.5-17.5); MEAN CORPUSCULAR HEMOGLOBIN 32.7 pg (27.0-33.0); MEAN CORPUSCULAR VOLUME 99.3 fl (80.0-96.0); PLATELET COUNT, AUTOMATED 302 10^3/uL (150-450); RED BLOOD COUNT 4.49 10^6/uL (4.30-6.10); WHITE BLOOD COUNT 7.8 10^3/uL (4.0-10.0)
[2022-10-21 02:48] LABS: ETHYL ALCOHOL (ETHANOL) < 0.003 % (0.000-0.010)
[2022-10-21 02:50] LABS: ACETAMINOPHEN LEVEL < 2.0 UG/ML (10.0-20.0); ALBUMIN 3.4 G/DL (3.2-5.2); ALKALINE PHOSPHATASE 116 U/L (46-116); ALT/SGPT 11 U/L (7.0-40); AST/SGOT 13 U/L (<34); BILIRUBIN,DIRECT 0.1 MG/DL (<0.4); BILIRUBIN,TOTAL 0.4 MG/DL (0.3-1.2); BLOOD UREA NITROGEN 20 MG/DL (9-23); CALCIUM LEVEL 8.2 MG/DL (8.5-10.1); CARBON DIOXIDE LEVEL 24 MMOL/L (20-31); CHLORIDE LEVEL 112 MMOL/L (98-107); CREATININE FOR GFR 0.87 MG/DL (0.70-1.30); GLOMERULAR FILTRATION RATE > 60.0 (>56); GLUCOSE, FASTING 93 MG/DL (60-100); POTASSIUM SERUM 3.8 MMOL/L (3.5-5.1); SALICYLATE LEVEL < 3.0 MG/DL (<30); SODIUM LEVEL 143 MMOL/L (136-145); TOTAL PROTEIN 6.4 G/DL (5.7-8.2)
[2022-10-21 02:54] LABS: THYROID STIMULATING HORMONE 1.218 uIU/ML (0.55-4.78)
[2022-10-21] MEDS ORDERED: TRAZ-252 PO (06:33)
[2022-10-21] MEDS ORDERED: SERT50TA29 PO (06:33)
[2022-10-21] MEDS ORDERED: ARIP1TAB43 PO (06:33)
[2022-10-21] MEDS ORDERED: HOME MED LIST COMPLETE! XX SCH (06:35)
[2022-10-21 15:39] LABS: AMPHETAMINES LEVEL URINE POSITIVE (NEGATIVE); BARBITURATES URINE NEGATIVE (NEGATIVE); BENZODIAZEPINES URINE NEGATIVE (NEGATIVE); CANNABINOIDS URINE POSITIVE (NEGATIVE); COCAINE METABOLITE URINE NEGATIVE (NEGATIVE); METHADONE URINE NEGATIVE (NEGATIVE); OPIATES URINE NEGATIVE (NEGATIVE); PHENCYCLIDINE URINE NEGATIVE (NEGATIVE)
[2022-10-22] MEDS: NICOTINE 14 MG/24 HR TRANSDERMAL TD SCH (09:00)
[2022-10-22] MEDS ORDERED: SERTRALINE HCL 50 MG TAB PO ONE (09:30)
[2022-10-22] MEDS ORDERED: NORTRIPTYLINE 25 MG CAP PO ONE (09:30)
[2022-10-22] MEDS ORDERED: ATORVASTATIN 20 MG TAB PO ONE (09:30)
[2022-10-22] MEDS ORDERED: OMEPRAZOLE 20MG CAP PO ONE (09:30)
[2022-10-22] MEDS ORDERED: IBUPROFEN 200MG TAB PO PRN (10:50)
[2022-10-22] MEDS ORDERED: IBUPROFEN 400MG TAB PO PRN (10:50)
[2022-10-22] MEDS ORDERED: OLANZapine ORAL DISINTEGRATING TAB 5MG PO PRN (10:50)
[2022-10-22] MEDS ORDERED: ALBUTEROL 90 MCG/ACT 8GM HFA INHALER INH PRN (10:50)
[2022-10-22] MEDS ORDERED: tiZANidine 4 MG TAB PO PRN (10:50)
[2022-10-22] MEDS ORDERED: traZODone 50 MG TAB PO PRN (10:50)
[2022-10-22] MEDS ORDERED: diphenhydrAMINE 25MG CAP PO PRN (10:50)
[2022-10-22] MEDS ORDERED: MOM 30ML SUSPENSION UDC PO PRN (10:50)
[2022-10-22] MEDS ORDERED: MAALOX 30 ML SUSP *UDC PO PRN (10:50)
[2022-10-22] MEDS ORDERED: ACETAMINOPHEN TAB 650MG DOSE (2X325MG) PO PRN (10:50)
[2022-10-22] MEDS: ARIPiprazole 10 MG TAB PO SCH (17:15)
[2022-10-22] MEDS: NORTRIPTYLINE 25 MG CAP PO SCH ×2 (17:15→21:36)
[2022-10-22] MEDS: lisinopriL 5 MG TAB PO SCH (21:36)
[2022-10-23 06:22] VITALS: BP 118/72; TEMP 97; O2SAT 100
[2022-10-23] MEDS: NICOTINE 14 MG/24 HR TRANSDERMAL TD SCH (09:00)
[2022-10-23] MEDS: ARIPiprazole 10 MG TAB PO SCH (10:12)
[2022-10-23] MEDS: OMEPRAZOLE 20MG CAP PO SCH (10:12)
[2022-10-23] MEDS: SERTRALINE HCL 50 MG TAB PO SCH (10:12)
[2022-10-23] MEDS: ATORVASTATIN 20 MG TAB PO SCH (10:12)
[2022-10-23] MEDS: NORTRIPTYLINE 25 MG CAP PO SCH ×3 (10:13→21:19)
[2022-10-23] MEDS: lisinopriL 5 MG TAB PO SCH (21:19)
[2022-10-24 06:39] VITALS: BP 122/61; TEMP 97.3; O2SAT 96
[2022-10-24] MEDS: NICOTINE 14 MG/24 HR TRANSDERMAL TD SCH (09:00)
[2022-10-24] MEDS: ARIPiprazole 15 MG TAB (AbiLIFY) PO SCH ×2 (10:39→10:45)
[2022-10-24] MEDS: ATORVASTATIN 20 MG TAB PO SCH (10:39)
[2022-10-24] MEDS: NORTRIPTYLINE 25 MG CAP PO SCH ×3 (10:40→21:52)
[2022-10-24] MEDS: OMEPRAZOLE 20MG CAP PO SCH (10:40)
[2022-10-24] MEDS: SERTRALINE HCL 50 MG TAB PO SCH (10:40)
[2022-10-24] MEDS: lisinopriL 5 MG TAB PO SCH (21:52)
[2022-10-25 06:36] VITALS: BP 119/62; TEMP 96.8; O2SAT 95
[2022-10-25] MEDS: ATORVASTATIN 20 MG TAB PO SCH (08:55)
[2022-10-25] MEDS: OMEPRAZOLE 20MG CAP PO SCH (08:56)
[2022-10-25] MEDS: ARIPiprazole 15 MG TAB (AbiLIFY) PO SCH ×2 (08:58→08:59)
[2022-10-25] MEDS: SERTRALINE HCL 50 MG TAB PO SCH (08:58)
[2022-10-25] MEDS: NORTRIPTYLINE 25 MG CAP PO SCH ×3 (08:59→22:14)
[2022-10-25] MEDS: NICOTINE 14 MG/24 HR TRANSDERMAL TD SCH (09:00)
[2022-10-25] MEDS: traZODone 50 MG TAB PO PRN (22:14)
[2022-10-25] MEDS: lisinopriL 5 MG TAB PO SCH (22:14)
[2022-10-26 06:28] VITALS: BP 106/59; TEMP 97.9; O2SAT 96
[2022-10-26] MEDS: NICOTINE 14 MG/24 HR TRANSDERMAL TD SCH (09:00)
[2022-10-26] MEDS: ARIPiprazole 15 MG TAB (AbiLIFY) PO SCH (09:46)
[2022-10-26] MEDS: SERTRALINE HCL 50 MG TAB PO SCH (09:46)
[2022-10-26] MEDS: NORTRIPTYLINE 25 MG CAP PO SCH ×3 (09:46→21:46)
[2022-10-26] MEDS: ATORVASTATIN 20 MG TAB PO SCH (09:46)
[2022-10-26] MEDS: OMEPRAZOLE 20MG CAP PO SCH (09:46)
[2022-10-26 18:00] VITALS: BP 130/80; TEMP 97.3; O2SAT 98
[2022-10-26] MEDS: lisinopriL 5 MG TAB PO SCH (21:46)
[2022-10-26] MEDS: traZODone 50 MG TAB PO PRN (21:46)
[2022-10-27 06:25] VITALS: BP 120/75; TEMP 97.6; O2SAT 95
[2022-10-27] MEDS: ATORVASTATIN 20 MG TAB PO SCH (08:41)
[2022-10-27] MEDS: NORTRIPTYLINE 25 MG CAP PO SCH ×3 (08:41→21:44)
[2022-10-27] MEDS: ARIPiprazole 15 MG TAB (AbiLIFY) PO SCH (08:41)
[2022-10-27] MEDS: OMEPRAZOLE 20MG CAP PO SCH (08:41)
[2022-10-27] MEDS: SERTRALINE HCL 50 MG TAB PO SCH (08:41)
[2022-10-27] MEDS: traZODone 50 MG TAB PO PRN (21:44)
[2022-10-27 21:45] VITALS: BP 120/75
[2022-10-27] MEDS: lisinopriL 5 MG TAB PO SCH (21:45)
[2022-10-28 06:23] VITALS: BP 107/54; TEMP 97.5; O2SAT 99
[2022-10-28] MEDS ORDERED: OMEP-173 PO (09:01)
[2022-10-28] MEDS ORDERED: TRAZ-252 PO (09:01)
[2022-10-28] MEDS ORDERED: NORT25CA2 PO (09:01)
[2022-10-28] MEDS ORDERED: PYRI25TA2 PO (09:01)
[2022-10-28] MEDS ORDERED: LISI5TAB11 PO (09:01)
[2022-10-28] MEDS ORDERED: ATOR40TA75 PO (09:01)
[2022-10-28] MEDS ORDERED: SERT50TA29 PO (09:01)
[2022-10-28] MEDS ORDERED: ARIP1TAB43 PO (09:01)
[2022-10-28] MEDS ORDERED: TIZA10TA PO (09:01)
[2022-10-28] MEDS: OMEPRAZOLE 20MG CAP PO SCH (09:54)
[2022-10-28] MEDS: SERTRALINE HCL 50 MG TAB PO SCH (09:54)
[2022-10-28] MEDS: NORTRIPTYLINE 25 MG CAP PO SCH (09:54)
[2022-10-28] MEDS: ATORVASTATIN 20 MG TAB PO SCH (09:55)
[2022-10-28] MEDS: ARIPiprazole 15 MG TAB (AbiLIFY) PO SCH (09:55)
== END 2022-10-28 12:56 | disposition home or self-care (01) | DRG 750 ==
LOC: M ED 01:29 → M ED INP 10-22 10:48 → M PSY 10-22 14:11
PROVIDERS: ADMIT Student in an Organized Health Care Education/Training Program; ATTEND Student in an Organized Health Care Education/Training Program
DX: F20.9 Schizophrenia, unspecified (principal); U07.1 COVID-19; R45.851 Suicidal ideations; Z59.00 Homelessness unspecified; Z88.8 Allergy status to other drugs, medicaments and biological substances; Z79.899 Other long term (current) drug therapy; J44.9 Chronic obstructive pulmonary disease, unspecified; I10 Essential (primary) hypertension; F17.200 Nicotine dependence, unspecified, uncomplicated; G62.9 Polyneuropathy, unspecified; K21.9 Gastro-esophageal reflux disease without esophagitis; E04.1 Nontoxic single thyroid nodule; E78.5 Hyperlipidemia, unspecified

== ENCOUNTER 2022-11-11 18:38 | Emergency (ER) | payer OTHER ==
[~2022-11-11] VITALS: Ht 177.8 cm; Wt 76.3 kg
[~2022-11-11 18:38] MED LIST changes: +ARIP1TAB43 PO; +SERT50TA29 PO
[2022-11-11 18:39] VITALS: BP 123/73; TEMP 98.1; O2SAT 97
== END 2022-11-12 05:19 | disposition home or self-care (01) ==
LOC: M ED 18:38
DX: S20.219A Contusion of unspecified front wall of thorax, initial encounter (principal); M25.461 Effusion, right knee; V18.0XXA Pedal cycle driver injured in noncollision transport accident in nontraffic accident, initial encounter; J44.9 Chronic obstructive pulmonary disease, unspecified; F17.200 Nicotine dependence, unspecified, uncomplicated; M47.812 Spondylosis without myelopathy or radiculopathy, cervical region; F12.10 Cannabis abuse, uncomplicated; F10.10 Alcohol abuse, uncomplicated; Z79.83 Long term (current) use of bisphosphonates; Z79.811 Long term (current) use of aromatase inhibitors; Z79.899 Other long term (current) drug therapy

== ENCOUNTER → 2023-02-17 | Outpatient (CLI) | payer OTHER ==
[2023-02-17 14:13] LABS: BLOOD UREA NITROGEN 21 MG/DL (9-23); CALCIUM LEVEL 9.4 MG/DL (8.5-10.1); CARBON DIOXIDE LEVEL 28 MMOL/L (20-31); CHLORIDE LEVEL 109 MMOL/L (98-107); CREATININE FOR GFR 1.07 MG/DL (0.70-1.30); GLOMERULAR FILTRATION RATE > 60.0 (>56); GLUCOSE, FASTING 93 MG/DL (60-100); POTASSIUM SERUM 4.8 MMOL/L (3.5-5.1); SODIUM LEVEL 145 MMOL/L (136-145)
== END ==
LOC: M PLALAB 10:40
PROVIDERS: ATTEND Physician Assistant Medical
DX: F20.89 Other schizophrenia (principal); M25.461 Effusion, right knee

== ENCOUNTER → 2023-05-09 | Outpatient (CLI) | payer OTHER ==
[2023-05-09 15:58] LABS: HEMATOCRIT 48.8 % (42.0-52.0)
[2023-05-09 16:04] LABS: BASO % 0.4 % (0.0-1.0); EOS # 0.2 10^3/uL (0.0-0.5); EOS % 2.4 % (0.0-3.0); HEMATOCRIT 48.7 % (42.0-52.0); HEMOGLOBIN 16.8 g/dl (13.5-17.5); LYMPH # 2.9 10^3/uL (1.5-5.0); LYMPH % 32.7 % (24.0-44.0); MEAN CORPUSCULAR HEMOGLOBIN 33.9 pg (27.0-33.0); MEAN CORPUSCULAR HGB CONC 34.5 g/dl (32.0-36.5); MEAN CORPUSCULAR VOLUME 98.4 fl (80.0-96.0); MONO # 0.7 10^3/uL (0.0-0.8); MONO % 7.3 % (2.0-8.0); NEUTROPHILS # 5.1 10^3/uL (1.5-8.5); PLATELET COUNT, AUTOMATED 281 10^3/uL (150-450); RED BLOOD COUNT 4.95 10^6/uL (4.30-6.10)
[2023-05-09 16:25] LABS: ALBUMIN 3.8 G/DL (3.2-5.2); ALKALINE PHOSPHATASE 120 U/L (46-116); ALT/SGPT 13 U/L (7.0-40); AST/SGOT 13 U/L (<34); BILIRUBIN,TOTAL 0.6 MG/DL (0.3-1.2); BLOOD UREA NITROGEN 26 MG/DL (9-23); CALCIUM LEVEL 9.3 MG/DL (8.5-10.1); CARBON DIOXIDE LEVEL 24 MMOL/L (20-31); CHLORIDE LEVEL 112 MMOL/L (98-107); CHOLESTEROL LEVEL 219 MG/DL (<200); CHOLESTEROL RISK RATIO 6.49 (<5); CREATININE FOR GFR 1.02 MG/DL (0.70-1.30); FREE T4 1.35 NG/DL (0.89-1.76); GLOMERULAR FILTRATION RATE > 60.0 (>56); GLUCOSE, FASTING 102 MG/DL (60-100); HDL CHOLESTEROL 33.7 MG/DL (>40); LDL CHOLESTEROL 143.9 MG/DL (<100); NON-HDL-C 185.3 MG/DL; SODIUM LEVEL 138 MMOL/L (136-145); THYROID STIMULATING HORMONE 2.536 uIU/ML (0.55-4.78); TOTAL PROTEIN 7.5 G/DL (5.7-8.2); TRIGLYCERIDES LEVEL 207 MG/DL (<150)
[2023-05-09 16:26] LABS: VITAMIN B12 LEVEL 317 PG/ML (211-911)
== END ==
LOC: M PLALAB 12:29
PROVIDERS: ATTEND Physician Assistant Medical
DX: F41.1 Generalized anxiety disorder (principal); D72.829 Elevated white blood cell count, unspecified; R44.2 Other hallucinations; F06.0 Psychotic disorder with hallucinations due to known physiological condition; I10 Essential (primary) hypertension; E78.49 Other hyperlipidemia

== ENCOUNTER → 2023-05-26 | Outpatient (CLI) | payer OTHER | LOC: M PLALAB 15:07 | PROVIDERS: ATTEND Physician Assistant Medical | DX: Z12.5 Encounter for screening for malignant neoplasm of prostate (principal) ==

== ENCOUNTER → 2023-06-06 | Outpatient (CLI) | payer OTHER ==
[~2023-06-06] MED LIST changes: -MINO100T PO; +MINO100T6 PO
== END ==
LOC: M WHC 13:37
PROVIDERS: ATTEND Physician Assistant Medical
DX: E04.1 Nontoxic single thyroid nodule (principal)

== ENCOUNTER → 2023-10-03 | Outpatient (CLI) | payer OTHER ==
[~2023-10-03] MED LIST changes: +DOXY-323 PO; -DOXY-443 PO
[2023-10-03 13:32] LABS: BASO # 0.1 10^3/uL (0.0-0.2); BASO % 0.8 % (0.0-1.0); EOS # 0.4 10^3/uL (0.0-0.5); EOS % 4.1 % (0.0-3.0); HEMATOCRIT 46.8 % (42.0-52.0); HEMOGLOBIN 16.2 g/dl (13.5-17.5); LYMPH # 3.1 10^3/uL (1.5-5.0); LYMPH % 35.6 % (24.0-44.0); MEAN CORPUSCULAR HEMOGLOBIN 34.1 pg (27.0-33.0); MEAN CORPUSCULAR HGB CONC 34.6 g/dl (32.0-36.5); MEAN CORPUSCULAR VOLUME 98.5 fl (80.0-96.0); MONO # 0.6 10^3/uL (0.0-0.8); MONO % 6.6 % (2.0-8.0); NEUTROPHILS # 4.6 10^3/uL (1.5-8.5); NEUTROPHILS % 52.6 % (36.0-66.0); PLATELET COUNT, AUTOMATED 272 10^3/uL (150-450); RED BLOOD COUNT 4.75 10^6/uL (4.30-6.10); WHITE BLOOD COUNT 8.7 10^3/uL (4.0-10.0)
== END ==
LOC: M PLALAB 10:57
PROVIDERS: ATTEND Physician Assistant Medical
DX: I10 Essential (primary) hypertension (principal); D72.829 Elevated white blood cell count, unspecified

== ENCOUNTER → 2024-01-27 | Outpatient (CLI) | payer OTHER ==
[~2024-01-27] MED LIST changes: -ARIP1TAB43 PO; +ARIP20TA51 PO; -DOXY-323 PO; +DOXY-441 PO
[2024-01-27 15:22] LABS: BASO # 0.1 10^3/uL (0.0-0.2); BASO % 0.3 % (0.0-1.0); EOS # 0.1 10^3/uL (0.0-0.5); EOS % 0.5 % (0.0-3.0); HEMATOCRIT 52.4 % (42.0-52.0); HEMOGLOBIN 17.8 g/dl (13.5-17.5); LYMPH # 2.1 10^3/uL (1.5-5.0); LYMPH % 13.4 % (24.0-44.0); MEAN CORPUSCULAR HEMOGLOBIN 33.3 pg (27.0-33.0); MEAN CORPUSCULAR VOLUME 97.9 fl (80.0-96.0); MONO # 0.9 10^3/uL (0.0-0.8); MONO % 6.1 % (2.0-8.0); NEUTROPHILS # 12.2 10^3/uL (1.5-8.5); NEUTROPHILS % 79.3 % (36.0-66.0); PLATELET COUNT, AUTOMATED 264 10^3/uL (150-450); RED BLOOD COUNT 5.35 10^6/uL (4.30-6.10); WHITE BLOOD COUNT 15.4 10^3/uL (4.0-10.0)
[2024-01-27 15:28] LABS: ALBUMIN 3.9 G/DL (3.2-5.2); ALKALINE PHOSPHATASE 132 U/L (46-116); ALT/SGPT < 9 U/L (7.0-40); AST/SGOT < 8 U/L (<34); BILIRUBIN,TOTAL 0.9 MG/DL (0.3-1.2); BLOOD UREA NITROGEN 17 MG/DL (9-23); CARBON DIOXIDE LEVEL 30 MMOL/L (20-31); CHLORIDE LEVEL 110 MMOL/L (98-107); CHOLESTEROL LEVEL 226 MG/DL (<200); CHOLESTEROL RISK RATIO 7.92 (<5); CREATININE FOR GFR 1.02 MG/DL (0.70-1.30); GLOMERULAR FILTRATION RATE > 60.0 (>56); GLUCOSE, FASTING 93 MG/DL (60-100); HDL CHOLESTEROL 28.5 MG/DL (>40); LDL CHOLESTEROL 137.5 MG/DL (<100); NON-HDL-C 197.5 MG/DL; POTASSIUM SERUM 4.7 MMOL/L (3.5-5.1); SODIUM LEVEL 142 MMOL/L (136-145); TOTAL PROTEIN 7.7 G/DL (5.7-8.2); TRIGLYCERIDES LEVEL 300 MG/DL (<150)
[2024-01-27 15:30] LABS: FREE T4 1.81 NG/DL (0.89-1.76)
[2024-01-27 15:31] LABS: THYROID STIMULATING HORMONE 1.784 uIU/ML (0.55-4.78)
== END ==
LOC: M PLALAB 12:47
PROVIDERS: ATTEND Physician Assistant Medical
DX: J44.9 Chronic obstructive pulmonary disease, unspecified (principal); Z72.0 Tobacco use; Z87.09 Personal history of other diseases of the respiratory system; E78.49 Other hyperlipidemia; I10 Essential (primary) hypertension; F41.1 Generalized anxiety disorder; Z12.5 Encounter for screening for malignant neoplasm of prostate

== ENCOUNTER → 2024-07-26 | Outpatient (REF) | payer OTHER ==
[2024-07-26 14:23] LABS: BASO # 0.1 10^3/uL (0.0-0.2); BASO % 0.6 % (0.0-1.0); EOS # 0.3 10^3/uL (0.0-0.5); HEMATOCRIT 53.2 % (42.0-52.0); HEMOGLOBIN 17.4 g/dl (13.5-17.5); LYMPH % 34.1 % (24.0-44.0); MEAN CORPUSCULAR HEMOGLOBIN 32.8 pg (27.0-33.0); MEAN CORPUSCULAR HGB CONC 32.7 g/dl (32.0-36.5); MEAN CORPUSCULAR VOLUME 100.4 fl (80.0-96.0); MONO # 0.7 10^3/uL (0.0-0.8); MONO % 7.8 % (2.0-8.0); NEUTROPHILS # 4.8 10^3/uL (1.5-8.5); NEUTROPHILS % 54.2 % (36.0-66.0); PLATELET COUNT, AUTOMATED 315 10^3/uL (150-450); WHITE BLOOD COUNT 8.8 10^3/uL (4.0-10.0)
[2024-07-26 14:44] LABS: ALBUMIN 3.7 G/DL (3.2-5.2); BILIRUBIN,TOTAL 0.4 MG/DL (0.3-1.2); CREATININE FOR GFR 1.02 MG/DL (0.70-1.30); GLOMERULAR FILTRATION RATE 88.4 (>56); POTASSIUM SERUM 4.8 MMOL/L (3.5-5.1); TOTAL PROTEIN 7.6 G/DL (5.7-8.2)
[2024-07-26 14:46] LABS: FREE T4 1.33 NG/DL (0.89-1.76); THYROID STIMULATING HORMONE 1.597 uIU/ML (0.55-4.78)
== END ==
LOC: M LABDRAWP 13:35
PROVIDERS: ATTEND Physician Assistant Medical
DX: E04.1 Nontoxic single thyroid nodule (principal); D72.829 Elevated white blood cell count, unspecified; I10 Essential (primary) hypertension; E78.49 Other hyperlipidemia

== ENCOUNTER → 2024-08-20 | Outpatient (REF) | payer OTHER, MEDICAID ==
[2024-08-20 11:35] LABS: APPEARANCE, URINE HAZY (CLEAR); BACTERIA, URINE AUTO NEGATIVE (NEGATIVE); BILIRUBIN, URINE AUTO NEGATIVE (NEGATIVE); BLOOD, URINE BLOOD NEGATIVE (NEGATIVE); COLOR, URINE YELLOW (YELLOW); GLUCOSE, URINE (UA) AUTO NEGATIVE (NEGATIVE); KETONE, URINE AUTO NEGATIVE (NEGATIVE); LEUKOCYTE ESTERASE, URINE AUTO NEGATIVE (NEGATIVE); MUCUS, URINE LARGE (NEGATIVE); NITRITE, URINE AUTO NEGATIVE (NEGATIVE); PROTEIN, URINE AUTO NEGATIVE (NEGATIVE); RBC, URINE AUTO 3 /HPF (0-3); SPECIFIC GRAVITY URINE AUTO 1.026 (1.002-1.035); SQUAMOUS EPITHELIAL CELL UR AU 0 /HPF (0-6); WBC, URINE AUTO 2 /HPF (0-3)
== END ==
LOC: M SFHCPLAZ 10:18
PROVIDERS: ATTEND Physician Assistant Medical
DX: D72.829 Elevated white blood cell count, unspecified (principal)

== ENCOUNTER → 2024-12-01 | Outpatient (CLI) | payer OTHER | LOC: M PLALAB 12:06 | PROVIDERS: ATTEND Physician Assistant Medical | DX: I10 Essential (primary) hypertension (principal) ==

== ENCOUNTER → 2024-12-16 | Outpatient (CLI) | payer OTHER ==
[~2024-12-16] MED LIST changes: -IBUP-1022 PO; +IBUP600T42 PO
== END ==
LOC: M CARPUL 09:26
PROVIDERS: ATTEND Physician Assistant Medical
DX: J44.9 Chronic obstructive pulmonary disease, unspecified (principal)

== ENCOUNTER → 2025-02-04 | Outpatient (CLI) | payer OTHER ==
[2025-02-04 13:57] LABS: BASO # 0.1 10^3/uL (0.0-0.2); BASO % 0.5 % (0.0-1.0); EOS # 0.2 10^3/uL (0.0-0.5); EOS % 1.9 % (0.0-3.0); LYMPH # 2.0 10^3/uL (1.5-5.0); LYMPH % 19.8 % (24.0-44.0); MONO # 0.9 10^3/uL (0.0-0.8); MONO % 8.7 % (2.0-8.0); NEUTROPHILS # 6.8 10^3/uL (1.5-8.5); NEUTROPHILS % 68.8 % (36.0-66.0); PLATELET COUNT, AUTOMATED 265 10^3/uL (150-450)
[2025-02-04 14:00] LABS: ALT/SGPT 11.0 U/L (7.0-40); AST/SGOT 12.0 U/L (<34); CALCIUM LEVEL 9.2 MG/DL (8.5-10.1); CARBON DIOXIDE LEVEL 30.0 MMOL/L (20-31); CHLORIDE LEVEL 110.0 MMOL/L (98-107); CHOLESTEROL LEVEL 198.0 MG/DL (<200); CHOLESTEROL RISK RATIO 5.92 (<5); CREATININE FOR GFR 1.09 MG/DL (0.70-1.30); GLOMERULAR FILTRATION RATE 81.2 (>56); LDL CHOLESTEROL 119.0 MG/DL (<100); NON-HDL-C 164.6 MG/DL; POTASSIUM SERUM 4.3 MMOL/L (3.5-5.1); PSA SCREENING 1.09 NG/ML (< 4.00); SODIUM LEVEL 147.0 MMOL/L (136-145); TRIGLYCERIDES LEVEL 228.0 MG/DL (<150)
[2025-02-04 14:03] LABS: FREE T4 1.33 NG/DL (0.89-1.76)
== END ==
LOC: M PLALAB 11:35
PROVIDERS: ATTEND Physician Assistant Medical
DX: E04.1 Nontoxic single thyroid nodule (principal); Z12.5 Encounter for screening for malignant neoplasm of prostate; F41.1 Generalized anxiety disorder; E78.49 Other hyperlipidemia; I10 Essential (primary) hypertension

== ENCOUNTER → 2025-02-18 | Outpatient (CLI) | payer OTHER | LOC: M WHC 10:50 | PROVIDERS: ATTEND Physician Assistant Medical | DX: E04.2 Nontoxic multinodular goiter (principal) ==